=== PATIENT | male | born 1935 | race African-American/Black ===

== ENCOUNTER 2018-04-08 13:46 | Inpatient (IN) | payer MEDICARE ==
[~2018-04-08] VITALS: Ht 167.6 cm; Wt 95.0 kg
[2018-04-08] MEDS ORDERED: KETOROLAC 30MG/ML VIAL IV STA (19:18)
[2018-04-08] MEDS ORDERED: PIPERACILLIN/TAZ 3.375G PREMIX 50 ML IV ONE (19:30)
[2018-04-08] MEDS ORDERED: VANCOMYCIN 1 G PREMIX 200 ML IV ONE (19:30)
[2018-04-08 20:59] LABS: BASOPHILS % 0.3 % (0.0-2.0); EOSINOPHILS % 2.6 % (0.0-5.0); HEMATOCRIT. 38.8 % (42.0-52.0); HEMOGLOBIN. 12.6 g/dL (14.0-18.0); LYMPHOCYTES % 18.9 % (20.0-50.0); MEAN CORPUSCULAR HEMOGLOBIN 29.1 pg (28.0-32.0); MEAN CORPUSCULAR VOLUME 89.7 fL (80.0-94.0); MEAN PLATELET VOLUME 8.4 fl (7.4-10.4); MONOCYTES % 11.4 % (2.0-8.0); NEUTROPHILS % 66.8 % (40.0-76.0); PLATELET 268 x1000/uL (130-400); RED BLOOD CELL COUNT 4.33 mill/uL (4.7-6.1); RED CELL DISTRIBUTION WIDTH 15.1 % (11.6-14.6)
[2018-04-08 21:05] LABS: CHLORIDE 107 mEq/L (98-107); INR 1.1; PROTHROMBIN TIME 10.7 sec (9.1-11.1)
[2018-04-09 04:00] VITALS: BP 133/62
[2018-04-09 08:00] VITALS: BP 117/63
[2018-04-09] MEDS ORDERED: ONDANSETRON HCL 4MG/2ML INJ IV PRN (08:00)
[2018-04-09] MEDS ORDERED: IPRATROPIUM/ALBUTEROL 0.5-3(2.5)MG/3ML NEB INH PRN (08:00)
[2018-04-09] MEDS ORDERED: CLONIDINE 0.1MG TABLET PO PRN (08:00)
[2018-04-09] MEDS ORDERED: AMLO10TA80 PO (08:07)
[2018-04-09] MEDS ORDERED: ATEN50TA PO (08:08)
[2018-04-09] MEDS ORDERED: CLOP75TA16 PO (08:08)
[2018-04-09] MEDS ORDERED: ASPI-1158 PO (08:09)
[2018-04-09] MEDS ORDERED: ATOR20TA PO (08:11)
[2018-04-09] MEDS ORDERED: CA C1TAB95 PO (08:12)
[2018-04-09] MEDS ORDERED: DEXT 5%/0.45% NACL 500ML 1,000 ML IV SCH (13:15)
[2018-04-09] MEDS ORDERED: ENOXAPARIN 40MG/0.4ML SYR SUBCUT SCH (14:00)
[2018-04-09] MEDS: CLOPIDOGREL 75MG TABLET PO SCH (14:40)
[2018-04-09] MEDS: DEXT 5%/0.45% NACL 1000ML 1,000 ML IV SCH (14:56)
[2018-04-09] MEDS: PIPERACILLIN/TAZ 3.375G PREMIX 50 ML IV SCH ×2 (15:37→21:16)
[2018-04-09 16:00] VITALS: BP 102/56
[2018-04-09 20:00] VITALS: BP 102/59
[2018-04-09] MEDS ORDERED: VANCOMYCIN 1 G PREMIX 200 ML IV SCH (21:00)
[2018-04-10] VITALS: BP 115/62
[2018-04-10] MEDS: PIPERACILLIN/TAZ 3.375G PREMIX 50 ML IV SCH ×4 (02:48→20:45)
[2018-04-10 02:59] LABS: CLARITY URINE CLEAR (CLEAR); COLOR URINE YELLOW (YELLOW); KETONES URINE NEGATIVE (NEGATIVE); LEUKOCYTE ESTERASE URINE TRACE (NEGATIVE); NITRITE URINE NEGATIVE (NEGATIVE); OCCULT BLOOD URINE NEGATIVE (NEGATIVE); PH URINE 6.5 (4.5-8.0); PROTEIN URINE NEGATIVE (NEGATIVE); SPECIFIC GRAVITY URINE 1.022 (1.005-1.030); UROBILINOGEN URINE 0.2 E.U./dL (0.2-1.0)
[2018-04-10 04:00] VITALS: BP 108/56
[2018-04-10] MEDS: DEXT 5%/0.45% NACL 1000ML 1,000 ML IV SCH ×2 (04:41→16:53)
[2018-04-10] MEDS: ACETAMINOPHEN 325MG TABLET PO PRN ×2 (06:49→20:45)
[2018-04-10 07:25] LABS: BASOPHILS % 0.5 % (0.0-2.0); EOSINOPHILS % 3.4 % (0.0-5.0); HEMATOCRIT. 35.9 % (42.0-52.0); HEMOGLOBIN. 11.6 g/dL (14.0-18.0); LYMPHOCYTES % 23.3 % (20.0-50.0); MEAN CORPUSCULAR HEMOGLOBIN 28.9 pg (28.0-32.0); MEAN CORPUSCULAR VOLUME 89.1 fL (80.0-94.0); MEAN PLATELET VOLUME 8.7 fl (7.4-10.4); MONOCYTES % 12.1 % (2.0-8.0); NEUTROPHILS % 60.7 % (40.0-76.0); PLATELET 252 x1000/uL (130-400); RED BLOOD CELL COUNT 4.02 mill/uL (4.7-6.1)
[2018-04-10 07:57] LABS: CHLORIDE 106 mEq/L (98-107)
[2018-04-10 08:00] VITALS: BP 126/62
[2018-04-10] MEDS ORDERED: SODIUM CHLORIDE 0.45% 1,000 ML IV SCH (08:00)
[2018-04-10 08:05] LABS: CREATINE KINASE MB FRACTION < 1.0 ng/mL (0.5-3.6)
[2018-04-10 08:06] LABS: LDL CHOLESTEROL 93 mg/dL (5-100); PHOSPHORUS 3.5 mg/dL (2.5-4.9)
[2018-04-10 08:07] LABS: CREATINE KINASE 99 IU/L (39-308)
[2018-04-10 08:08] LABS: HDL CHOLESTEROL 44 mg/dL (40-59)
[2018-04-10] MEDS: CLOPIDOGREL 75MG TABLET PO SCH (08:46)
[2018-04-10] MEDS ORDERED: ALBUMIN HUMAN 25GM/100ML (25%) IV NR (11:00)
[2018-04-10 12:01] VITALS: BP 123/60
[2018-04-10 20:00] VITALS: BP 143/65
[2018-04-10] MEDS: ENOXAPARIN 40MG/0.4ML SYR SUBCUT SCH (20:45)
[2018-04-10] MEDS ORDERED: VANCOMYCIN 750 MG PREMIX 150 ML IV SCH (22:00)
[2018-04-11] VITALS: BP 139/73
[2018-04-11] MEDS: PIPERACILLIN/TAZ 3.375G PREMIX 50 ML IV SCH ×2 (02:03→08:31)
[2018-04-11 04:00] VITALS: BP 140/65
[2018-04-11] MEDS: DEXT 5%/0.45% NACL 1000ML 1,000 ML IV SCH (04:37)
[2018-04-11] MEDS: ACETAMINOPHEN 325MG TABLET PO PRN ×3 (06:41→23:50)
[2018-04-11 07:59] LABS: BASOPHILS % 0.4 % (0.0-2.0); EOSINOPHILS % 4.7 % (0.0-5.0); HEMATOCRIT. 32.8 % (42.0-52.0); LYMPHOCYTES % 22.6 % (20.0-50.0); MEAN CORPUSCULAR HEMOGLOBIN 29.6 pg (28.0-32.0); MEAN CORPUSCULAR VOLUME 88.3 fL (80.0-94.0); MEAN PLATELET VOLUME 8.4 fl (7.4-10.4); MONOCYTES % 14.8 % (2.0-8.0); NEUTROPHILS % 57.5 % (40.0-76.0); PLATELET 250 x1000/uL (130-400); RED BLOOD CELL COUNT 3.71 mill/uL (4.7-6.1); RED CELL DISTRIBUTION WIDTH 14.8 % (11.6-14.6)
[2018-04-11 08:00] LABS: PHOSPHORUS 3.1 mg/dL (2.5-4.9)
[2018-04-11 08:16] VITALS: BP 118/59
[2018-04-11] MEDS: ENOXAPARIN 40MG/0.4ML SYR SUBCUT SCH ×2 (08:31→20:45)
[2018-04-11] MEDS: CLOPIDOGREL 75MG TABLET PO SCH (08:31)
[2018-04-11 11:45] VITALS: BP 124/52
[2018-04-11] MEDS: VANCOMYCIN 1 G PREMIX 200 ML IV SCH (14:29)
[2018-04-11] MEDS: PIPERACILLIN/TAZ 2.25G PREMIX 50 ML IV SCH ×2 (16:16→20:45)
[2018-04-11 16:27] VITALS: BP 126/70
[2018-04-11 16:31] LABS: CLARITY URINE CLEAR (CLEAR); COLOR URINE YELLOW (YELLOW); KETONES URINE NEGATIVE (NEGATIVE); LEUKOCYTE ESTERASE URINE NEGATIVE (NEGATIVE); NITRITE URINE NEGATIVE (NEGATIVE); OCCULT BLOOD URINE NEGATIVE (NEGATIVE); PROTEIN URINE NEGATIVE (NEGATIVE); SPECIFIC GRAVITY URINE 1.008 (1.005-1.030); UROBILINOGEN URINE 0.2 E.U./dL (0.2-1.0)
[2018-04-11 20:00] VITALS: BP 138/73
[2018-04-12] VITALS: BP 130/62
[2018-04-12] MEDS: DEXT 5%/0.45% NACL 1000ML 1,000 ML IV SCH ×5 (00:58→21:42)
[2018-04-12] MEDS: PIPERACILLIN/TAZ 2.25G PREMIX 50 ML IV SCH ×4 (03:21→20:37)
[2018-04-12 04:00] VITALS: BP 126/78
[2018-04-12] MEDS: VANCOMYCIN 1 G PREMIX 200 ML IV SCH (05:14)
[2018-04-12 07:30] LABS: BASOPHILS % 0.3 % (0.0-2.0); EOSINOPHILS % 3.9 % (0.0-5.0); HEMATOCRIT. 32.1 % (42.0-52.0); HEMOGLOBIN. 10.7 g/dL (14.0-18.0); LYMPHOCYTES % 20.4 % (20.0-50.0); MEAN CORPUSCULAR HEMOGLOBIN 29.4 pg (28.0-32.0); MEAN CORPUSCULAR VOLUME 88.1 fL (80.0-94.0); MEAN PLATELET VOLUME 8.1 fl (7.4-10.4); MONOCYTES % 13.9 % (2.0-8.0); NEUTROPHILS % 61.5 % (40.0-76.0); PLATELET 268 x1000/uL (130-400); RED BLOOD CELL COUNT 3.64 mill/uL (4.7-6.1); RED CELL DISTRIBUTION WIDTH 14.9 % (11.6-14.6)
[2018-04-12 08:00] VITALS: BP 114/54
[2018-04-12] MEDS: CLOPIDOGREL 75MG TABLET PO SCH (08:57)
[2018-04-12] MEDS: ENOXAPARIN 40MG/0.4ML SYR SUBCUT SCH ×2 (08:57→20:48)
[2018-04-12] MEDS: ACETAMINOPHEN 325MG TABLET PO PRN ×2 (09:05→21:42)
[2018-04-12 12:00] VITALS: BP 101/76
[2018-04-12 16:00] VITALS: BP 122/65
[2018-04-12 20:00] VITALS: BP 138/66
[2018-04-12] MEDS: POTASSIUM CHLORIDE 10MEQ TABLET SR PO SCH (20:37)
[2018-04-13] VITALS (19 sets, daily range): BP systolic 106–142; BP diastolic 60–91
[2018-04-13] MEDS: VANCOMYCIN 1 G PREMIX 200 ML IV SCH ×2 (00:40→21:33)
[2018-04-13] MEDS: PIPERACILLIN/TAZ 2.25G PREMIX 50 ML IV SCH ×2 (02:51→09:40)
[2018-04-13] MEDS: DEXT 5%/0.45% NACL 1000ML 1,000 ML IV SCH (03:51)
[2018-04-13 06:10] LABS: A/G RATIO 0.6 (0.7-1.7); ALBUMIN 2.7 g/dL (2.9-4.4); ALPHA-1-GLOBULIN 0.3 g/dL (0.0-0.4); ALPHA-2-GLOBULIN 0.9 g/dL (0.4-1.0); BETA GLOBULIN 1.3 g/dL (0.7-1.3); GAMMA GLOBULINS 1.8 g/dL (0.4-1.8); GLOBULIN TOTAL 4.4 g/dL (2.2-3.9); M-SPIKE Not Observed g/dL (Not Observed); TOTAL PROTEIN SERUM 7.1 g/dL (6.0-8.5)
[2018-04-13 07:54] LABS: HEMATOCRIT. 28.2 % (42.0-52.0); HEMOGLOBIN. 9.2 g/dL (14.0-18.0); MEAN CORPUSCULAR HEMOGLOBIN 29.2 pg (28.0-32.0); MEAN CORPUSCULAR VOLUME 89.4 fL (80.0-94.0); MEAN PLATELET VOLUME 8.3 fl (7.4-10.4); PLATELET 234 x1000/uL (130-400); RED BLOOD CELL COUNT 3.15 mill/uL (4.7-6.1)
[2018-04-13] MEDS: ENOXAPARIN 40MG/0.4ML SYR SUBCUT SCH ×2 (09:00→22:00)
[2018-04-13 09:35] LABS: PHOSPHORUS 2.3 mg/dL (2.5-4.9)
[2018-04-13] MEDS ORDERED: POTASSIUM CHLORIDE 20MEQ TABLET SR PO NR (10:00)
[2018-04-13] MEDS: POTASSIUM CHLORIDE 10MEQ TABLET SR PO SCH (10:13)
[2018-04-13] MEDS: CLOPIDOGREL 75MG TABLET PO SCH (10:13)
[2018-04-13] MEDS ORDERED: MAGNESIUM 2 G PREMIX 50 ML IV NR (11:00)
[2018-04-13] MEDS ORDERED: LIDOCAINE HCL 1% 20ML VIAL (Pyxis) INJ ONE (12:32)
[2018-04-13] MEDS ORDERED: IOHEXOL-300 100 ML BOTTLE ONE (12:32)
[2018-04-13] MEDS ORDERED: IODIXANOL 320MG/ML 100 ML BOTTLE IV ONE (12:32)
[2018-04-13] MEDS ORDERED: ASPIRIN/SOD BICARB/CITRIC ACID 324MG TAB EFF ONE (12:32)
[2018-04-13] MEDS ORDERED: FENTANYL CITRATE/PF 50MCG/ML 2ML VIAL ONE (12:58)
[2018-04-13] MEDS ORDERED: MIDAZOLAM HCL 2 MG/2 ML VIAL ONE (12:58)
[2018-04-13] MEDS ORDERED: SODIUM CHLORIDE 0.45% 1,000 ML IV ONE (14:15)
[2018-04-13] MEDS ORDERED: ONDANSETRON HCL 4MG/2ML INJ IV PRN (14:15)
[2018-04-13] MEDS ORDERED: MORPHINE SULFATE 4 MG/ML CPJ (NOT FOR IM USE) IV PRN (14:15)
[2018-04-13] MEDS ORDERED: ATROPINE SULFATE 1MG/10ML SYR IV PRN (14:15)
[2018-04-13] MEDS ORDERED: ACETAMINOPHEN 325MG TABLET PO PRN (14:15)
[2018-04-13] MEDS ORDERED: HYDRALAZINE 20MG/ML VIAL ONE (14:19)
[2018-04-13] MEDS ORDERED: NICARDIPINE 100MCG/ML 10ML VIAL (CATH LAB) IV ONE (16:04)
[2018-04-13 16:58] LABS: TOTAL IRON BINDING CAPACITY 212 ug/dL (250-450)
[2018-04-13] MEDS: CEFTAZIDIME PENTAHYDRATE 1 G in DEXTROSE 5% WATER 50 ML IV SCH (17:20)
[2018-04-13 17:56] LABS: VITAMIN B12 SERUM 750 pg/mL (211-911)
[2018-04-13 18:10] LABS: PLATELET ESTIMATE NORMAL
[2018-04-14] VITALS (13 sets, daily range): BP systolic 100–151; BP diastolic 58–87
[2018-04-14] MEDS: CEFTAZIDIME PENTAHYDRATE 1 G in DEXTROSE 5% WATER 50 ML IV SCH ×2 (05:53→17:58)
[2018-04-14] MEDS: DEXT 5%/0.45% NACL 1000ML 1,000 ML IV SCH ×2 (05:57→19:32)
[2018-04-14] MEDS: POTASSIUM CHLORIDE 10MEQ TABLET SR PO SCH (08:17)
[2018-04-14 11:30] LABS: BASOPHILS % 0.2 % (0.0-2.0); EOSINOPHILS % 1.9 % (0.0-5.0); HEMATOCRIT. 29.1 % (42.0-52.0); HEMOGLOBIN. 9.6 g/dL (14.0-18.0); LYMPHOCYTES % 11.7 % (20.0-50.0); MEAN CORPUSCULAR HEMOGLOBIN 29.2 pg (28.0-32.0); MEAN PLATELET VOLUME 8.4 fl (7.4-10.4); MONOCYTES % 13.9 % (2.0-8.0); NEUTROPHILS % 72.3 % (40.0-76.0); PLATELET 228 x1000/uL (130-400); RED BLOOD CELL COUNT 3.28 mill/uL (4.7-6.1)
[2018-04-14] MEDS: VANCOMYCIN 1 G PREMIX 200 ML IV SCH (12:20)
[2018-04-14] MEDS ORDERED: HEPARIN SODIUM 1,000 UNIT/1ML VIAL IV ONE (16:06)
[2018-04-15] VITALS (21 sets, daily range): BP systolic 86–145; BP diastolic 54–82
[2018-04-15] MEDS: DEXT 5%/0.45% NACL 1000ML 1,000 ML IV SCH (01:26)
[2018-04-15] MEDS: CEFTAZIDIME PENTAHYDRATE 1 G in DEXTROSE 5% WATER 50 ML IV SCH ×2 (05:14→18:03)
[2018-04-15] MEDS: VANCOMYCIN 1 G PREMIX 200 ML IV SCH (06:10)
[2018-04-15 08:05] LABS: BASOPHILS % 0.5 % (0.0-2.0); EOSINOPHILS % 2.7 % (0.0-5.0); HEMATOCRIT. 32.5 % (42.0-52.0); HEMOGLOBIN. 10.6 g/dL (14.0-18.0); LYMPHOCYTES % 16.4 % (20.0-50.0); MEAN CORPUSCULAR HEMOGLOBIN 28.9 pg (28.0-32.0); MEAN PLATELET VOLUME 8.3 fl (7.4-10.4); MONOCYTES % 14.6 % (2.0-8.0); NEUTROPHILS % 65.8 % (40.0-76.0); PLATELET 265 x1000/uL (130-400); RED BLOOD CELL COUNT 3.65 mill/uL (4.7-6.1); RED CELL DISTRIBUTION WIDTH 14.9 % (11.6-14.6)
[2018-04-15] MEDS: POTASSIUM CHLORIDE 10MEQ TABLET SR PO SCH (09:00)
[2018-04-15] MEDS ORDERED: MAGNESIUM 2 G PREMIX 50 ML IV SCH (09:30)
[2018-04-15] MEDS ORDERED: HYDRALAZINE 20MG/ML VIAL IV PRN (09:30)
[2018-04-15] MEDS ORDERED: GELATIN SPONGE,ABSORBABLE 12-7MM SPONGE ONE (09:44)
[2018-04-15] MEDS ORDERED: HEPARIN 5000 UNITS/ML VIAL ONE (09:45)
[2018-04-15] MEDS ORDERED: BACITRACIN 15GM TUBE TOP ONE (09:45)
[2018-04-15] MEDS ORDERED: LIDOCAINE HCL 1% 20ML VIAL (Pyxis) INJ ONE (09:45)
[2018-04-15] MEDS ORDERED: PAPAVERINE HCL 30 MG/ML 2ML IV ONE (09:45)
[2018-04-15] MEDS ORDERED: THROMBIN (BOVINE) 5000 UNITS/VIAL TOP ONE (09:46)
[2018-04-15] MEDS ORDERED: BUPIVACAINE HCL/PF 0.5% (5MG/ML) 10ML ONE (09:46)
[2018-04-15] MEDS ORDERED: HEPARIN SODIUM 1,000 UNIT/1ML VIAL IV ONE (09:46)
[2018-04-15] MEDS ORDERED: NORMAL SALINE 0.9% 10 ML SYR ONE (09:52)
[2018-04-15] MEDS ORDERED: BACITRACIN 50,000 UNITS/VIAL ONE (09:52)
[2018-04-15] MEDS ORDERED: PROPOFOL 200MG/20ML VIAL IV ONE ×2 (11:05→12:00)
[2018-04-15] MEDS ORDERED: MIDAZOLAM HCL 2 MG/2 ML VIAL ONE (11:05)
[2018-04-15] MEDS ORDERED: FENTANYL CITRATE/PF 50MCG/ML 2ML VIAL ONE ×2 (11:05→12:55)
[2018-04-15] MEDS ORDERED: CEFAZOLIN SODIUM 1000MG/VIAL ONE (11:31)
[2018-04-15] MEDS ORDERED: ESMOLOL HCL 10MG/ML 10ML VIAL IV ONE (12:29)
[2018-04-15] MEDS ORDERED: HEPARIN 1000 UNITS/ML 10ML ONE (12:29)
[2018-04-15] MEDS ORDERED: PHENYLEPHRINE HCL 10 MG/ML 1ML (IV VIAL) IV ONE (12:46)
[2018-04-15] MEDS ORDERED: ONDANSETRON HCL 4MG/2ML INJ IV PRN (13:30)
[2018-04-15] MEDS ORDERED: FENTANYL CITRATE/PF 50MCG/ML 2ML VIAL IV PRN (13:30)
[2018-04-15] MEDS: HYDROMORPHONE HCL/PF 2MG/ML CPJ IV PRN ×2 (14:28→14:43)
[2018-04-15] MEDS ORDERED: LACTATED RINGERS 250 ML IV NR (14:30)
[2018-04-15] MEDS ORDERED: TRAMADOL 50MG TABLET PO PRN (16:45)
[2018-04-15] MEDS: DEXT 5%/0.9% NACL 1,000 ML IV SCH (22:23)
[2018-04-16] VITALS (34 sets, daily range): BP systolic 83–141; BP diastolic 52–85
[2018-04-16] MEDS: HYDROMORPHONE HCL/PF 2MG/ML CPJ IV PRN (04:32)
[2018-04-16 05:45] LABS: HEMATOCRIT. 26.7 % (42.0-52.0); HEMOGLOBIN. 8.8 g/dL (14.0-18.0); MEAN CORPUSCULAR HEMOGLOBIN 29.3 pg (28.0-32.0); MEAN CORPUSCULAR VOLUME 88.6 fL (80.0-94.0); MEAN PLATELET VOLUME 8.4 fl (7.4-10.4); PLATELET 247 x1000/uL (130-400); RED BLOOD CELL COUNT 3.01 mill/uL (4.7-6.1); RED CELL DISTRIBUTION WIDTH 14.9 % (11.6-14.6)
[2018-04-16 06:09] LABS: PHOSPHORUS 2.5 mg/dL (2.5-4.9)
[2018-04-16] MEDS: VANCOMYCIN 1 G PREMIX 200 ML IV SCH (06:12)
[2018-04-16] MEDS: CEFTAZIDIME PENTAHYDRATE 1 G in DEXTROSE 5% WATER 50 ML IV SCH ×3 (07:56→21:47)
[2018-04-16] MEDS: POTASSIUM CHLORIDE 10MEQ TABLET SR PO SCH (09:17)
[2018-04-16] MEDS ORDERED: SODIUM CHLORIDE 0.9% 250 ML IV SCH (09:45)
[2018-04-16] MEDS ORDERED: SODIUM CHLORIDE 0.9% 250 ML IV ONE (10:00)
[2018-04-16 11:33] LABS: HEMATOCRIT 26.2 % (42.0-52.0); HEMOGLOBIN 8.4 g/dL (14.0-18.0)
[2018-04-16] MEDS: ASPIRIN 81MG TABLET PO SCH (11:36)
[2018-04-16] MEDS ORDERED: PROPRANOLOL HCL 10MG TABLET PO NR (12:20)
[2018-04-16] MEDS ORDERED: HEPARIN 5000 UNITS/ML VIAL IV NR (12:30)
[2018-04-16] MEDS ORDERED: PROPRANOLOL HCL 1MG/ML AMPULE IV NR (13:00)
[2018-04-16] MEDS ORDERED: MIDAZOLAM HCL 2 MG/2 ML VIAL ONE (13:06)
[2018-04-16] MEDS ORDERED: LIDOCAINE HCL 1% 20ML VIAL (Pyxis) INJ ONE (13:07)
[2018-04-16] MEDS ORDERED: FENTANYL CITRATE/PF 50MCG/ML 2ML VIAL ONE (13:07)
[2018-04-16] MEDS ORDERED: IODIXANOL 320MG/ML 100 ML BOTTLE IV ONE (13:07)
[2018-04-16] MEDS ORDERED: ASPIRIN/SOD BICARB/CITRIC ACID 324MG TAB EFF ONE (13:09)
[2018-04-16 13:37] LABS: PLATELET ESTIMATE NORMAL
[2018-04-16] MEDS ORDERED: ATROPINE SULFATE 1MG/10ML SYR IV PRN (14:45)
[2018-04-16] MEDS ORDERED: ACETAMINOPHEN 325MG TABLET PO PRN (14:45)
[2018-04-16] MEDS ORDERED: SODIUM CHLORIDE 0.45% 500 ML IV ONE (14:45)
[2018-04-16] MEDS ORDERED: PHENYLEPHRINE 100MCG/ML 10ML VIAL (CATH LAB) IV ONE (14:51)
[2018-04-16] MEDS ORDERED: NITROGLYCERIN 50MCG/ML 10ML VIAL (CATH LAB) IV ONE (14:51)
[2018-04-16] MEDS ORDERED: HEPARIN SODIUM 1,000 UNIT/1ML VIAL IV ONE (15:21)
[2018-04-16] MEDS: NITROGLYCERIN OINT 1GM/INCH UDPKT TD SCH ×2 (17:00→22:59)
[2018-04-16] MEDS: CARVEDILOL 3.125 MG TABLET PO SCH (21:47)
[2018-04-16] MEDS: DEXT 5%/0.9% NACL 1,000 ML IV SCH (23:00)
[2018-04-17] VITALS (38 sets, daily range): BP systolic 69–131; BP diastolic 35–83
[2018-04-17] MEDS: NITROGLYCERIN OINT 1GM/INCH UDPKT TD SCH ×4 (06:37→23:51)
[2018-04-17] MEDS: VANCOMYCIN 1 G PREMIX 200 ML IV SCH (06:37)
[2018-04-17 08:05] LABS: HEMATOCRIT. 28.5 % (42.0-52.0); HEMOGLOBIN. 9.4 g/dL (14.0-18.0); MEAN CORPUSCULAR HEMOGLOBIN 29.4 pg (28.0-32.0); MEAN CORPUSCULAR VOLUME 89.4 fL (80.0-94.0); MEAN PLATELET VOLUME 8.1 fl (7.4-10.4); PLATELET 204 x1000/uL (130-400); RED BLOOD CELL COUNT 3.19 mill/uL (4.7-6.1); RED CELL DISTRIBUTION WIDTH 14.9 % (11.6-14.6)
[2018-04-17] MEDS: CEFTAZIDIME PENTAHYDRATE 1 G in DEXTROSE 5% WATER 50 ML IV SCH ×2 (09:08→20:27)
[2018-04-17] MEDS: POTASSIUM CHLORIDE 10MEQ TABLET SR PO SCH (09:09)
[2018-04-17] MEDS: CARVEDILOL 3.125 MG TABLET PO SCH ×2 (09:09→20:28)
[2018-04-17] MEDS: ASPIRIN 81MG TABLET PO SCH (09:09)
[2018-04-17 09:14] LABS: PLATELET ESTIMATE NORMAL
[2018-04-17] MEDS ORDERED: PAPAVERINE HCL 30 MG/ML 2ML IV ONE (10:14)
[2018-04-17] MEDS ORDERED: GELATIN SPONGE,ABSORBABLE 12-7MM SPONGE ONE (10:14)
[2018-04-17] MEDS ORDERED: HEPARIN 100 UNITS/1 ML VIAL ONE (10:14)
[2018-04-17] MEDS ORDERED: BACITRACIN 15GM TUBE TOP ONE (10:15)
[2018-04-17] MEDS ORDERED: THROMBIN (BOVINE) 5000 UNITS/VIAL TOP ONE (10:15)
[2018-04-17] MEDS ORDERED: LIDOCAINE HCL 1% 20ML VIAL (Pyxis) INJ ONE (10:15)
[2018-04-17] MEDS ORDERED: BACITRACIN 50,000 UNITS/VIAL ONE (10:16)
[2018-04-17] MEDS ORDERED: HEPARIN SODIUM 1,000 UNIT/1ML VIAL IV ONE (10:16)
[2018-04-17] MEDS ORDERED: BUPIVACAINE HCL 0.5% (5MG/ML) 50ML ONE (10:16)
[2018-04-17] MEDS ORDERED: MIDAZOLAM HCL 2 MG/2 ML VIAL ONE (10:43)
[2018-04-17] MEDS ORDERED: FENTANYL CITRATE/PF 50MCG/ML 2ML VIAL ONE ×2 (10:43→11:15)
[2018-04-17] MEDS ORDERED: LABETALOL HCL 5MG/ML VIAL 20ML IV ONE (10:46)
[2018-04-17] MEDS ORDERED: HYDROMORPHONE HCL/PF 2MG/ML CPJ IV PRN (11:30)
[2018-04-17] MEDS ORDERED: LABETALOL HCL 20MG/4ML CARPUJECT IV PRN (11:30)
[2018-04-17] MEDS ORDERED: MEPERIDINE HCL/PF 25MG/ML CPJ IV PRN (11:30)
[2018-04-17] MEDS ORDERED: PROPRANOLOL HCL 1MG/ML AMPULE IV NR (11:30)
[2018-04-17] MEDS ORDERED: ONDANSETRON HCL 4MG/2ML INJ IV PRN (11:30)
[2018-04-17] MEDS ORDERED: MAGNESIUM 2 G PREMIX 50 ML IV NR ×2 (12:00→16:00)
[2018-04-17] MEDS: DEXT 5%/0.9% NACL 1,000 ML IV SCH ×2 (14:07→20:29)
[2018-04-17] MEDS: PROPRANOLOL HCL 1MG/ML AMPULE IV PRN ×2 (14:12→20:27)
[2018-04-17] MEDS ORDERED: MAGNESIUM 4 G PREMIX 100 ML IV ONE (14:15)
[2018-04-17] MEDS ORDERED: POTASSIUM PHOS,M-BASIC-D-BASIC 20 MMOL in DEXT 5% WATER 243.3333 ML IV ONE (16:00)
[2018-04-17] MEDS: MORPHINE SULFATE 4 MG/ML CPJ (NOT FOR IM USE) IV PRN (17:30)
[2018-04-17] MEDS: ENOXAPARIN 40MG/0.4ML SYR SUBCUT SCH (18:29)
[2018-04-17] MEDS: ATORVASTATIN CALCIUM 20MG TABLET PO SCH (20:28)
[2018-04-18] VITALS (27 sets, daily range): BP systolic 92–181; BP diastolic 51–115
[2018-04-18] MEDS: PROPRANOLOL HCL 1MG/ML AMPULE IV PRN ×2 (03:26→18:08)
[2018-04-18] MEDS: MORPHINE SULFATE 4 MG/ML CPJ (NOT FOR IM USE) IV PRN ×2 (05:15→14:52)
[2018-04-18] MEDS: NITROGLYCERIN OINT 1GM/INCH UDPKT TD SCH ×3 (05:18→17:31)
[2018-04-18] MEDS: ENOXAPARIN 40MG/0.4ML SYR SUBCUT SCH ×2 (05:20→17:32)
[2018-04-18] MEDS: VANCOMYCIN 1 G PREMIX 200 ML IV SCH (05:22)
[2018-04-18 06:59] LABS: HEMATOCRIT. 28.3 % (42.0-52.0); HEMOGLOBIN. 9.2 g/dL (14.0-18.0); MEAN CORPUSCULAR HEMOGLOBIN 29.1 pg (28.0-32.0); MEAN CORPUSCULAR VOLUME 89.2 fL (80.0-94.0); MEAN PLATELET VOLUME 8.9 fl (7.4-10.4); PLATELET 212 x1000/uL (130-400); RED BLOOD CELL COUNT 3.17 mill/uL (4.7-6.1); RED CELL DISTRIBUTION WIDTH 14.9 % (11.6-14.6)
[2018-04-18 07:17] LABS: CHLORIDE 107 mEq/L (98-107)
[2018-04-18 07:35] LABS: CREATINE KINASE 374 IU/L (39-308)
[2018-04-18] MEDS: CARVEDILOL 3.125 MG TABLET PO SCH (09:34)
[2018-04-18] MEDS: ASPIRIN 81MG TABLET PO SCH (09:34)
[2018-04-18] MEDS: CEFTAZIDIME PENTAHYDRATE 1 G in DEXTROSE 5% WATER 50 ML IV SCH ×2 (09:34→20:37)
[2018-04-18] MEDS: POTASSIUM CHLORIDE 10MEQ TABLET SR PO SCH (09:34)
[2018-04-18 09:59] LABS: PHOSPHORUS 2.9 mg/dL (2.5-4.9)
[2018-04-18] MEDS ORDERED: CARVEDILOL 3.125 MG TABLET PO SCH (10:00)
[2018-04-18 12:06] LABS: PLATELET ESTIMATE NORMAL
[2018-04-18 17:31] LABS: CLARITY URINE TURBID (CLEAR); COLOR URINE ORANGE (YELLOW); KETONES URINE TRACE (NEGATIVE); LEUKOCYTE ESTERASE URINE 1+ (NEGATIVE); NITRITE URINE NEGATIVE (NEGATIVE); OCCULT BLOOD URINE 3+ (NEGATIVE); PROTEIN URINE 3+ (NEGATIVE); SPECIFIC GRAVITY URINE 1.025 (1.005-1.030); UROBILINOGEN URINE 0.2 E.U./dL (0.2-1.0)
[2018-04-18] MEDS: ATORVASTATIN CALCIUM 20MG TABLET PO SCH (20:39)
[2018-04-18] MEDS: CARVEDILOL 6.25 MG TABLET PO SCH (20:40)
[2018-04-18] MEDS: RANOLAZINE 500 MG TAB.SR.12H PO SCH (20:40)
[2018-04-19] VITALS (18 sets, daily range): BP systolic 101–121; BP diastolic 60–75
[2018-04-19] MEDS: NITROGLYCERIN OINT 1GM/INCH UDPKT TD SCH ×5 (00:42→22:13)
[2018-04-19] MEDS: VANCOMYCIN 1 G PREMIX 200 ML IV SCH (05:29)
[2018-04-19] MEDS: ENOXAPARIN 40MG/0.4ML SYR SUBCUT SCH ×2 (05:31→18:08)
[2018-04-19 07:20] LABS: HEMATOCRIT. 24.6 % (42.0-52.0); HEMOGLOBIN. 8.1 g/dL (14.0-18.0); MEAN CORPUSCULAR HEMOGLOBIN 29.4 pg (28.0-32.0); MEAN CORPUSCULAR VOLUME 89.1 fL (80.0-94.0); MEAN PLATELET VOLUME 8.8 fl (7.4-10.4); PLATELET 195 x1000/uL (130-400); RED BLOOD CELL COUNT 2.76 mill/uL (4.7-6.1); RED CELL DISTRIBUTION WIDTH 14.8 % (11.6-14.6)
[2018-04-19 07:56] LABS: PHOSPHORUS 2.3 mg/dL (2.5-4.9)
[2018-04-19] MEDS: CARVEDILOL 6.25 MG TABLET PO SCH (09:00)
[2018-04-19] MEDS: ASPIRIN 81MG TABLET PO SCH (09:52)
[2018-04-19] MEDS: RANOLAZINE 500 MG TAB.SR.12H PO SCH ×2 (09:52→22:12)
[2018-04-19] MEDS: CEFTAZIDIME PENTAHYDRATE 1 G in DEXTROSE 5% WATER 50 ML IV SCH ×2 (09:52→22:12)
[2018-04-19] MEDS: POTASSIUM CHLORIDE 10MEQ TABLET SR PO SCH (09:52)
[2018-04-19 12:33] LABS: NUCLEATED RED BLOOD CELLS 1 /100 WBC; PLATELET ESTIMATE NORMAL
[2018-04-19] MEDS: POTASSIUM-SODIUM PHOSPHATE POWDER PACKET PO SCH ×2 (13:36→18:10)
[2018-04-19] MEDS: CARVEDILOL 3.125 MG TABLET PO SCH ×2 (13:36→22:13)
[2018-04-19] MEDS: SODIUM CHLORIDE 0.9% 1,000 ML IV SCH (13:37)
[2018-04-19] MEDS ORDERED: MAGNESIUM 2 G PREMIX 50 ML IV ONE (14:00)
[2018-04-19 18:50] LABS: HEMATOCRIT 27.1 % (42.0-52.0)
[2018-04-19] MEDS: ATORVASTATIN CALCIUM 20MG TABLET PO SCH (22:12)
[2018-04-20] VITALS (12 sets, daily range): BP systolic 101–128; BP diastolic 55–79
[2018-04-20 05:44] LABS: BASOPHILS % 0.2 % (0.0-2.0); EOSINOPHILS % 1.9 % (0.0-5.0); HEMATOCRIT. 28.3 % (42.0-52.0); HEMOGLOBIN. 9.4 g/dL (14.0-18.0); LYMPHOCYTES % 7.8 % (20.0-50.0); MEAN CORPUSCULAR HEMOGLOBIN 29.1 pg (28.0-32.0); MEAN CORPUSCULAR VOLUME 87.4 fL (80.0-94.0); MEAN PLATELET VOLUME 8.8 fl (7.4-10.4); MONOCYTES % 12.1 % (2.0-8.0); PLATELET 212 x1000/uL (130-400); RED BLOOD CELL COUNT 3.24 mill/uL (4.7-6.1); RED CELL DISTRIBUTION WIDTH 16.5 % (11.6-14.6)
[2018-04-20 06:40] LABS: PHOSPHORUS 2.1 mg/dL (2.5-4.9)
[2018-04-20 06:43] LABS: VANCOMYCIN TROUGH 18.7 ug/mL (5.0-10.0)
[2018-04-20] MEDS: VANCOMYCIN 1 G PREMIX 200 ML IV SCH (06:58)
[2018-04-20] MEDS: NITROGLYCERIN OINT 1GM/INCH UDPKT TD SCH ×3 (06:59→17:35)
[2018-04-20] MEDS: ENOXAPARIN 40MG/0.4ML SYR SUBCUT SCH ×2 (06:59→17:35)
[2018-04-20] MEDS: CARVEDILOL 3.125 MG TABLET PO SCH (07:12)
[2018-04-20] MEDS: CEFTAZIDIME PENTAHYDRATE 1 G in DEXTROSE 5% WATER 50 ML IV SCH ×2 (08:21→21:05)
[2018-04-20] MEDS: ASPIRIN 81MG TABLET PO SCH (08:21)
[2018-04-20] MEDS: RANOLAZINE 500 MG TAB.SR.12H PO SCH ×2 (08:21→21:05)
[2018-04-20] MEDS: POTASSIUM-SODIUM PHOSPHATE POWDER PACKET PO SCH ×2 (08:21→16:00)
[2018-04-20] MEDS: SODIUM CHLORIDE 0.9% 1,000 ML IV SCH (16:00)
[2018-04-20] MEDS: ATORVASTATIN CALCIUM 20MG TABLET PO SCH (21:05)
[2018-04-20] MEDS: CARVEDILOL 6.25 MG TABLET PO SCH (21:06)
[2018-04-21] VITALS (10 sets, daily range): BP systolic 90–112; BP diastolic 50–72
[2018-04-21] MEDS: SODIUM CHLORIDE 0.9% 1,000 ML IV SCH (05:15)
[2018-04-21] MEDS: NITROGLYCERIN OINT 1GM/INCH UDPKT TD SCH ×2 (06:00)
[2018-04-21] MEDS: ENOXAPARIN 40MG/0.4ML SYR SUBCUT SCH ×2 (06:20→21:20)
[2018-04-21] MEDS: VANCOMYCIN 1 G PREMIX 200 ML IV SCH (06:20)
[2018-04-21] MEDS: CARVEDILOL 6.25 MG TABLET PO SCH (09:00)
[2018-04-21 09:33] LABS: BASOPHILS % 0.5 % (0.0-2.0); EOSINOPHILS % 2.1 % (0.0-5.0); HEMOGLOBIN. 8.8 g/dL (14.0-18.0); LYMPHOCYTES % 6.4 % (20.0-50.0); MEAN CORPUSCULAR HEMOGLOBIN 28.9 pg (28.0-32.0); MEAN CORPUSCULAR VOLUME 88.6 fL (80.0-94.0); MONOCYTES % 12.6 % (2.0-8.0); NEUTROPHILS % 78.4 % (40.0-76.0); PLATELET 216 x1000/uL (130-400); RED BLOOD CELL COUNT 3.05 mill/uL (4.7-6.1); RED CELL DISTRIBUTION WIDTH 16.4 % (11.6-14.6)
[2018-04-21] MEDS: ASPIRIN 81MG TABLET PO SCH (09:40)
[2018-04-21] MEDS: CEFTAZIDIME PENTAHYDRATE 1 G in DEXTROSE 5% WATER 50 ML IV SCH ×2 (09:40→21:19)
[2018-04-21] MEDS: RANOLAZINE 500 MG TAB.SR.12H PO SCH ×2 (09:41→21:20)
[2018-04-21 09:59] LABS: CHLORIDE 107 mEq/L (98-107)
[2018-04-21 11:16] LABS: PHOSPHORUS 2.2 mg/dL (2.5-4.9)
[2018-04-21] MEDS ORDERED: MAGNESIUM 2 G PREMIX 50 ML IV NR (13:00)
[2018-04-21] MEDS ORDERED: SODIUM PHOS,M-BASIC-D-BASIC 20 MM in DEXT 5% WATER 243.3333 ML IV NR (14:00)
[2018-04-21] MEDS: CARVEDILOL 3.125 MG TABLET PO SCH ×2 (14:00→21:21)
[2018-04-21] MEDS ORDERED: ISOSORBIDE MONONITRATE 30MG TABLET SR 24HR PO SCH (21:00)
[2018-04-21] MEDS: ATORVASTATIN CALCIUM 20MG TABLET PO SCH (21:20)
[2018-04-22] VITALS (13 sets, daily range): BP systolic 95–120; BP diastolic 64–82
[2018-04-22] MEDS: SODIUM CHLORIDE 0.9% 1,000 ML IV SCH (01:15)
[2018-04-22] MEDS: ENOXAPARIN 40MG/0.4ML SYR SUBCUT SCH ×2 (06:16→17:33)
[2018-04-22] MEDS: VANCOMYCIN 1 G PREMIX 200 ML IV SCH (06:16)
[2018-04-22] MEDS: CARVEDILOL 3.125 MG TABLET PO SCH ×3 (06:18→20:18)
[2018-04-22 08:05] LABS: BASOPHILS % 0.5 % (0.0-2.0); EOSINOPHILS % 3.5 % (0.0-5.0); HEMATOCRIT. 26.5 % (42.0-52.0); HEMOGLOBIN. 8.7 g/dL (14.0-18.0); LYMPHOCYTES % 7.2 % (20.0-50.0); MEAN CORPUSCULAR HEMOGLOBIN 28.9 pg (28.0-32.0); MEAN CORPUSCULAR VOLUME 88.2 fL (80.0-94.0); MEAN PLATELET VOLUME 8.8 fl (7.4-10.4); MONOCYTES % 13.2 % (2.0-8.0); NEUTROPHILS % 75.6 % (40.0-76.0); PLATELET 245 x1000/uL (130-400); RED CELL DISTRIBUTION WIDTH 16.2 % (11.6-14.6)
[2018-04-22] MEDS: CEFTAZIDIME PENTAHYDRATE 1 G in DEXTROSE 5% WATER 50 ML IV SCH ×2 (08:40→20:18)
[2018-04-22] MEDS: RANOLAZINE 500 MG TAB.SR.12H PO SCH ×2 (08:40→20:18)
[2018-04-22] MEDS: ASPIRIN 81MG TABLET PO SCH (08:40)
[2018-04-22] MEDS ORDERED: GUAIFENESIN-DM 200MG-20MG/10ML UDC PO PRN (09:45)
[2018-04-22] MEDS: ATORVASTATIN CALCIUM 20MG TABLET PO SCH (20:17)
== END 2018-04-22 21:32 | disposition home or self-care (01) | DRG 853 ==
LOC: ER 14:33 → 5WST 22:49 → EDBEDREQTM 23:28 → EDBEDREQ 23:28 → EDBEDREQSVC 23:28 → ENRESERV 04-09 04:43 → 3WST 04-13 15:12 → CVICU 04-16 14:25 → 3WST 04-18 16:36
PROVIDERS: ADMIT Internal Medicine Critical Care Medicine; ATTEND Internal Medicine Critical Care Medicine
PROC: B41F1ZZ Fluoroscopy of Right Lower Extremity Arteries using Low Osmolar Contrast (ICD-10-PCS; principal; 2018-04-11)
PROC: 04HK33Z Insertion of Infusion Device into Right Femoral Artery, Percutaneous Approach (ICD-10-PCS; 2018-04-11)
PROC: 0JBQ0ZZ Excision of Right Foot Subcutaneous Tissue and Fascia, Open Approach (ICD-10-PCS; 2018-04-11)
PROC: B41G1ZZ Fluoroscopy of Left Lower Extremity Arteries using Low Osmolar Contrast (ICD-10-PCS; 2018-04-13)
PROC: B41F1ZZ Fluoroscopy of Right Lower Extremity Arteries using Low Osmolar Contrast (ICD-10-PCS; 2018-04-13)
PROC: 041M0KQ Bypass Right Popliteal Artery to Lower Extremity Artery with Nonautologous Tissue Substitute, Open Approach (ICD-10-PCS; 2018-04-15)
PROC: 0JBQ0ZZ Excision of Right Foot Subcutaneous Tissue and Fascia, Open Approach (ICD-10-PCS; 2018-04-16)
PROC: 4A023N7 Measurement of Cardiac Sampling and Pressure, Left Heart, Percutaneous Approach (ICD-10-PCS; 2018-04-16)
PROC: B2111ZZ Fluoroscopy of Multiple Coronary Arteries using Low Osmolar Contrast (ICD-10-PCS; 2018-04-16)
PROC: 30233N1 Transfusion of Nonautologous Red Blood Cells into Peripheral Vein, Percutaneous Approach (ICD-10-PCS; 2018-04-16)
PROC: B2151ZZ Fluoroscopy of Left Heart using Low Osmolar Contrast (ICD-10-PCS; 2018-04-16)
PROC: 04CM0ZZ Extirpation of Matter from Right Popliteal Artery, Open Approach (ICD-10-PCS; 2018-04-17)
PROC: 04CK0ZZ Extirpation of Matter from Right Femoral Artery, Open Approach (ICD-10-PCS; 2018-04-17)
DX: A41.02 Sepsis due to Methicillin resistant Staphylococcus aureus (principal); E43 Unspecified severe protein-calorie malnutrition; I21.4 Non-ST elevation (NSTEMI) myocardial infarction; I63.9 Cerebral infarction, unspecified; N17.9 Acute kidney failure, unspecified; L97.409 Non-pressure chronic ulcer of unspecified heel and midfoot with unspecified severity; I69.351 Hemiplegia and hemiparesis following cerebral infarction affecting right dominant side; E87.2 Acidosis; E11.52 Type 2 diabetes mellitus with diabetic peripheral angiopathy with gangrene; T82.868A Thrombosis due to vascular prosthetic devices, implants and grafts, initial encounter; D64.9 Anemia, unspecified; E78.00 Pure hypercholesterolemia, unspecified; E78.5 Hyperlipidemia, unspecified; L03.031 Cellulitis of right toe; N18.3 Chronic kidney disease, stage 3 (moderate); I73.9 Peripheral vascular disease, unspecified; I12.9 Hypertensive chronic kidney disease with stage 1 through stage 4 chronic kidney disease, or unspecified chronic kidney disease; L97.519 Non-pressure chronic ulcer of other part of right foot with unspecified severity; A41.52 Sepsis due to Pseudomonas; F32.9 Major depressive disorder, single episode, unspecified; G62.9 Polyneuropathy, unspecified; I25.10 Atherosclerotic heart disease of native coronary artery without angina pectoris; I25.5 Ischemic cardiomyopathy; M19.90 Unspecified osteoarthritis, unspecified site; Z95.828 Presence of other vascular implants and grafts; Z95.5 Presence of coronary angioplasty implant and graft; Z86.74 Personal history of sudden cardiac arrest; Z82.49 Family history of ischemic heart disease and other diseases of the circulatory system; Z79.899 Other long term (current) drug therapy; Z79.82 Long term (current) use of aspirin; Z79.02 Long term (current) use of antithrombotics/antiplatelets; Z22.322 Carrier or suspected carrier of Methicillin resistant Staphylococcus aureus; Z87.891 Personal history of nicotine dependence; Z79.4 Long term (current) use of insulin; Y83.2 Surgical operation with anastomosis, bypass or graft as the cause of abnormal reaction of the patient, or of later complication, without mention of misadventure at the time of the procedure; M21.619 Bunion of unspecified foot
CPT/HCPCS: 36246; 36415; 36569; 71045; 73630; 73721; 74176; 75710; 76770; 76937; 77001; 80048; 80061; 80202; 82550; 82553; 82607; 82962; 83540; 83550; 83605; 83735; 83880; 84100; 84134; 84145; 84155; 84165; 84443; 84484; 85014; 85018; 85044; 85347; 85379; 85651; 86140; 86850; 86900; 86920; 87070; 87077; 87186; 88304; 93005; 93306; 93458; 93922; 93923; 93970; 93971; 96365; 97163; 97166; 97530; 99285; C1725; C1757; C1760; C1768; C1769; C1887; C1893; C1894; J0360; J0690; J0713; J1170; J1642; J1644; J1650; J1800; J1885; J2250; J2270; J2370; J2440; J2543; J2704; J3010; J3370; J3475; J3490; J7030; J7040; J7042; J7050; J7060; J7620; P9016; P9047; Q9967

== ENCOUNTER 2018-06-26 12:41 | Inpatient (IN) | payer MEDICARE ==
[~2018-06-26] VITALS: Ht 167.6 cm; Wt 8.2 kg
[~2018-06-26 12:41] MED LIST: AMLO10TA80 PO; ASPI-1158 PO; ATEN50TA PO; ATOR20TA PO; CA C1TAB95 PO; CLOP75TA16 PO
[2018-06-26 13:22] LABS: BASOPHILS % 0.4 % (0.0-2.0); EOSINOPHILS % 3.4 % (0.0-5.0); HEMATOCRIT. 31.7 % (42.0-52.0); HEMOGLOBIN. 10.4 g/dL (14.0-18.0); LYMPHOCYTES % 20.5 % (20.0-50.0); MEAN CORPUSCULAR HEMOGLOBIN 28.3 pg (28.0-32.0); MEAN PLATELET VOLUME 7.4 fl (7.4-10.4); MONOCYTES % 11.6 % (2.0-8.0); NEUTROPHILS % 64.1 % (40.0-76.0); PLATELET 402 x1000/uL (130-400); RED BLOOD CELL COUNT 3.68 mill/uL (4.7-6.1); RED CELL DISTRIBUTION WIDTH 15.8 % (11.6-14.6)
[2018-06-26 13:28] LABS: CHLORIDE 101 mEq/L (98-107)
[2018-06-26 13:30] LABS: INR 1.1; PROTHROMBIN TIME 11.4 sec (9.6-11.0)
[2018-06-26 13:32] LABS: ETHANOL BLOOD < 10 mg/dL
[2018-06-26] MEDS ORDERED: ASPIRIN 325MG EC TABLET PO ONE (15:00)
[2018-06-26] MEDS ORDERED: ZOLPIDEM TARTRATE 5MG TABLET PO PRN (15:45)
[2018-06-26] MEDS ORDERED: CLONIDINE 0.1MG TABLET PO PRN (15:45)
[2018-06-26] MEDS ORDERED: MAGNESIUM/ALUMINUM HYDROXIDE/SIMETHICONE 30ML UDC PO PRN (15:45)
[2018-06-26] MEDS ORDERED: ONDANSETRON HCL 4MG/2ML INJ IV PRN (15:45)
[2018-06-26] MEDS ORDERED: IPRATROPIUM/ALBUTEROL 0.5-3(2.5)MG/3ML NEB INH PRN (15:45)
[2018-06-26] MEDS ORDERED: ACETAMINOPHEN 325MG TABLET PO PRN (15:45)
[2018-06-26] MEDS ORDERED: NITROGLYCERIN 0.4MG TABLET SL SL PRN (15:45)
[2018-06-26] MEDS ORDERED: GUAIFENESIN 200MG/10ML SUGAR FREE UDC PO PRN (15:45)
[2018-06-26] MEDS ORDERED: DOCUSATE SODIUM 100MG CAPSULE PO PRN (15:45)
[2018-06-26] MEDS ORDERED: ENOXAPARIN 40MG/0.4ML SYR SUBCUT NR (16:15)
[2018-06-26 16:16] LABS: T4 FREE 1.45 ng/dL (0.76-1.46)
[2018-06-26 16:33] LABS: FOLIC ACID (FOLATE) SERUM 6.3 ng/mL (>5.38)
[2018-06-26 20:30] VITALS: BP 149/76
[2018-06-26] MEDS ORDERED: TRAMADOL 50MG TABLET PO PRN (20:32)
[2018-06-26] MEDS: FAMOTIDINE 20MG TABLET PO SCH (21:59)
[2018-06-26] MEDS: ATORVASTATIN CALCIUM 20MG TABLET PO SCH (21:59)
[2018-06-26] MEDS: ASCORBIC ACID 500 MG TABLET PO SCH (21:59)
[2018-06-26 22:24] VITALS: BP 149/76
[2018-06-27 00:05] VITALS: BP 140/70
[2018-06-27 01:41] LABS: CREATINE KINASE 203 IU/L (39-308); CREATINE KINASE MB FRACTION < 1.0 ng/mL (0.5-3.6)
[2018-06-27 04:00] VITALS: BP 124/69
[2018-06-27 06:09] LABS: CLARITY URINE CLEAR (CLEAR); COLOR URINE YELLOW (YELLOW); KETONES URINE 1+ (NEGATIVE); LEUKOCYTE ESTERASE URINE NEGATIVE (NEGATIVE); NITRITE URINE NEGATIVE (NEGATIVE); OCCULT BLOOD URINE TRACE (NEGATIVE); PROTEIN URINE NEGATIVE (NEGATIVE); SPECIFIC GRAVITY URINE 1.017 (1.005-1.030); UROBILINOGEN URINE 0.2 E.U./dL (0.2-1.0)
[2018-06-27 06:48] LABS: *AMPHETAMINES SCREEN URINE NEGATIVE (NEGATIVE)
[2018-06-27 06:49] LABS: *BARBITURATES SCREEN URINE NEGATIVE (NEGATIVE); *BENZODIAZEPINES SCREEN URINE NEGATIVE (NEGATIVE); *COCAINE SCREEN URINE NEGATIVE (NEGATIVE); CANNABINOID URINE SCREEN NEGATIVE (NEGATIVE); METHADONE URINE SCREEN NEGATIVE (NEGATIVE); OPIATES URINE SCREEN NEGATIVE (NEGATIVE); PHENCYCLIDINE URINE SCREEN NEGATIVE (NEGATIVE)
[2018-06-27 08:00] VITALS: BP 158/80
[2018-06-27] MEDS: ASPIRIN 81MG EC TABLET PO SCH (09:36)
[2018-06-27] MEDS: ASCORBIC ACID 500 MG TABLET PO SCH ×2 (09:36→20:34)
[2018-06-27] MEDS: CLOPIDOGREL 75MG TABLET PO SCH (09:36)
[2018-06-27] MEDS: ENOXAPARIN 40MG/0.4ML SYR SUBCUT SCH (09:36)
[2018-06-27] MEDS: ZINC SULFATE 220 MG ( 50 ) CAPSULE PO SCH (09:36)
[2018-06-27 12:00] VITALS: BP 138/89
[2018-06-27] MEDS ORDERED: COLC0.6C3 MT (12:18)
[2018-06-27] MEDS ORDERED: MEMA5TAB7 MT (12:18)
[2018-06-27] MEDS ORDERED: GABA-531 MT (12:18)
[2018-06-27] MEDS ORDERED: TRAM50TA3 MT (12:18)
[2018-06-27 12:38] LABS: BASOPHILS % 0.5 % (0.0-2.0); HEMATOCRIT. 32.4 % (42.0-52.0); HEMOGLOBIN. 10.6 g/dL (14.0-18.0); MEAN CORPUSCULAR HEMOGLOBIN 27.9 pg (28.0-32.0); MEAN CORPUSCULAR VOLUME 85.4 fL (80.0-94.0); MEAN PLATELET VOLUME 7.6 fl (7.4-10.4); MONOCYTES % 11.9 % (2.0-8.0); NEUTROPHILS % 74.6 % (40.0-76.0); PLATELET 386 x1000/uL (130-400); RED BLOOD CELL COUNT 3.79 mill/uL (4.7-6.1); RED CELL DISTRIBUTION WIDTH 15.9 % (11.6-14.6)
[2018-06-27 12:47] LABS: CHLORIDE 101 mEq/L (98-107)
[2018-06-27 12:55] LABS: CREATINE KINASE 150 IU/L (39-308)
[2018-06-27 13:22] LABS: CREATINE KINASE MB FRACTION 1.9 ng/mL (0.5-3.6)
[2018-06-27 16:00] VITALS: BP 129/59
[2018-06-27 20:00] VITALS: BP 120/62
[2018-06-27] MEDS: ATORVASTATIN CALCIUM 20MG TABLET PO SCH (20:34)
[2018-06-27] MEDS: FAMOTIDINE 20MG TABLET PO SCH (20:34)
[2018-06-28 00:05] VITALS: BP 122/69
[2018-06-28 04:05] VITALS: BP 120/61
[2018-06-28 08:00] VITALS: BP 128/61
[2018-06-28] MEDS: ASCORBIC ACID 500 MG TABLET PO SCH ×2 (09:53→20:49)
[2018-06-28] MEDS: ZINC SULFATE 220 MG ( 50 ) CAPSULE PO SCH (09:53)
[2018-06-28] MEDS: CLOPIDOGREL 75MG TABLET PO SCH (09:53)
[2018-06-28] MEDS: ASPIRIN 81MG EC TABLET PO SCH (09:53)
[2018-06-28] MEDS: ENOXAPARIN 40MG/0.4ML SYR SUBCUT SCH (09:53)
[2018-06-28 12:00] VITALS: BP 117/63
[2018-06-28 16:00] VITALS: BP 122/63
[2018-06-28 20:00] VITALS: BP 118/63
[2018-06-28] MEDS: FAMOTIDINE 20MG TABLET PO SCH (20:49)
[2018-06-28] MEDS: ATORVASTATIN CALCIUM 20MG TABLET PO SCH (20:49)
[2018-06-29 00:05] VITALS: BP 112/69
[2018-06-29 04:00] VITALS: BP 122/71
[2018-06-29 08:00] VITALS: BP 114/64
[2018-06-29] MEDS: ZINC SULFATE 220 MG ( 50 ) CAPSULE PO SCH (09:03)
[2018-06-29] MEDS: ASCORBIC ACID 500 MG TABLET PO SCH ×2 (09:03→21:22)
[2018-06-29] MEDS: ASPIRIN 81MG EC TABLET PO SCH (09:03)
[2018-06-29] MEDS: CLOPIDOGREL 75MG TABLET PO SCH (09:03)
[2018-06-29] MEDS: ENOXAPARIN 40MG/0.4ML SYR SUBCUT SCH (09:04)
[2018-06-29 12:00] VITALS: BP 113/65
[2018-06-29 13:11] LABS: A/G RATIO 0.5 (0.7-1.7); ALBUMIN 2.9 g/dL (2.9-4.4); ALPHA-1-GLOBULIN 0.4 g/dL (0.0-0.4); ALPHA-2-GLOBULIN 1.2 g/dL (0.4-1.0); BETA GLOBULIN 1.5 g/dL (0.7-1.3); GLOBULIN TOTAL 6.2 g/dL (2.2-3.9); M-SPIKE Not Observed g/dL (Not Observed); TOTAL PROTEIN SERUM 9.1 g/dL (6.0-8.5)
[2018-06-29 16:00] VITALS: BP 136/66
[2018-06-29 20:00] VITALS: BP 104/66
[2018-06-29] MEDS: FAMOTIDINE 20MG TABLET PO SCH (21:22)
[2018-06-29] MEDS: ATORVASTATIN CALCIUM 20MG TABLET PO SCH (21:22)
[2018-06-30] VITALS: BP 103/69
[2018-06-30 04:00] VITALS: BP 108/58
[2018-06-30 08:00] VITALS: BP_SYST 105; BP_SYST 133; BP_DIAS 63; BP_DIAS 64
[2018-06-30] MEDS: ENOXAPARIN 40MG/0.4ML SYR SUBCUT SCH (08:45)
[2018-06-30] MEDS: CLOPIDOGREL 75MG TABLET PO SCH (08:45)
[2018-06-30] MEDS: ZINC SULFATE 220 MG ( 50 ) CAPSULE PO SCH (08:46)
[2018-06-30] MEDS: ASPIRIN 81MG EC TABLET PO SCH (08:46)
[2018-06-30] MEDS: ASCORBIC ACID 500 MG TABLET PO SCH ×2 (08:46→20:37)
[2018-06-30 12:00] VITALS: BP 124/78
[2018-06-30 16:00] VITALS: BP 118/79
[2018-06-30 20:00] VITALS: BP 102/61
[2018-06-30] MEDS: ATORVASTATIN CALCIUM 20MG TABLET PO SCH (20:37)
[2018-06-30] MEDS: FAMOTIDINE 20MG TABLET PO SCH (20:37)
[2018-07-01] VITALS: BP 127/70
[2018-07-01 04:00] VITALS: BP 133/74
[2018-07-01 08:00] VITALS: BP 106/61
[2018-07-01] MEDS: CLOPIDOGREL 75MG TABLET PO SCH (08:09)
[2018-07-01] MEDS: ASPIRIN 81MG EC TABLET PO SCH (08:09)
[2018-07-01] MEDS: ASCORBIC ACID 500 MG TABLET PO SCH (08:09)
[2018-07-01] MEDS: ZINC SULFATE 220 MG ( 50 ) CAPSULE PO SCH (08:09)
[2018-07-01] MEDS: ENOXAPARIN 40MG/0.4ML SYR SUBCUT SCH (08:10)
[2018-07-01 11:21] VITALS: BP 106/84
== END 2018-07-01 12:25 | disposition home health service (06) | DRG 91 ==
LOC: ER 13:10 → EDBEDREQSVC 14:55 → EDBEDREQ 14:55 → SUPCPDRO 15:27 → 7WST 15:40 → EDBEDREQ 15:42 → ENRESERV 19:44
PROVIDERS: ADMIT Internal Medicine; ATTEND Internal Medicine
DX: G95.20 Unspecified cord compression (principal); S14.103A Unspecified injury at C3 level of cervical spinal cord, initial encounter; L89.313 Pressure ulcer of right buttock, stage 3; G92 Toxic encephalopathy; N17.0 Acute kidney failure with tubular necrosis; M47.12 Other spondylosis with myelopathy, cervical region; T82.858A Stenosis of other vascular prosthetic devices, implants and grafts, initial encounter; E44.0 Moderate protein-calorie malnutrition; I13.0 Hypertensive heart and chronic kidney disease with heart failure and stage 1 through stage 4 chronic kidney disease, or unspecified chronic kidney disease; I42.9 Cardiomyopathy, unspecified; I50.42 Chronic combined systolic (congestive) and diastolic (congestive) heart failure; I69.351 Hemiplegia and hemiparesis following cerebral infarction affecting right dominant side; J84.9 Interstitial pulmonary disease, unspecified; Z79.02 Long term (current) use of antithrombotics/antiplatelets; G95.89 Other specified diseases of spinal cord; D63.8 Anemia in other chronic diseases classified elsewhere; D72.829 Elevated white blood cell count, unspecified; N18.9 Chronic kidney disease, unspecified; L89.150 Pressure ulcer of sacral region, unstageable; B95.62 Methicillin resistant Staphylococcus aureus infection as the cause of diseases classified elsewhere; E61.1 Iron deficiency; L98.429 Non-pressure chronic ulcer of back with unspecified severity; E78.5 Hyperlipidemia, unspecified; G62.9 Polyneuropathy, unspecified; I25.10 Atherosclerotic heart disease of native coronary artery without angina pectoris; I73.9 Peripheral vascular disease, unspecified; M46.90 Unspecified inflammatory spondylopathy, site unspecified; M48.061 Spinal stenosis, lumbar region without neurogenic claudication; M47.816 Spondylosis without myelopathy or radiculopathy, lumbar region; M48.02 Spinal stenosis, cervical region; R13.10 Dysphagia, unspecified; R47.1 Dysarthria and anarthria; M25.569 Pain in unspecified knee; X58.XXXA Exposure to other specified factors, initial encounter; Y83.2 Surgical operation with anastomosis, bypass or graft as the cause of abnormal reaction of the patient, or of later complication, without mention of misadventure at the time of the procedure; Y93.89 Activity, other specified; Y99.8 Other external cause status; Z95.828 Presence of other vascular implants and grafts; I69.320 Aphasia following cerebral infarction; Z98.1 Arthrodesis status; Z95.5 Presence of coronary angioplasty implant and graft; Z87.891 Personal history of nicotine dependence; Z68.30 Body mass index [BMI] 30.0-30.9, adult; Y92.89 Other specified places as the place of occurrence of the external cause
CPT/HCPCS: 36415; 70551; 71045; 72141; 72146; 72148; 73721; 80061; 80305; 80320; 82550; 82553; 82607; 82746; 82962; 83036; 83540; 83550; 83605; 83721; 83880; 84155; 84165; 84439; 84443; 84484; 92523; 92610; 93005; 93923; 93970; 97163; 97166; 99285; A6261; J1650; G0480

== ENCOUNTER 2018-09-03 14:49 | Inpatient (IN) | payer MEDICARE ==
[~2018-09-03] VITALS: Ht 172.7 cm; Wt 78.0 kg
[~2018-09-03 14:49] MED LIST changes: -CLOP75TA16 PO; +CLOP75TA4 PO; +COLC0.6C3 MT; +GABA-531 MT; +MEMA5TAB7 MT; +TRAM50TA3 MT
[2018-09-03 16:55] VITALS: BP 94/49
[2018-09-03] MEDS ORDERED: MAGNESIUM/ALUMINUM HYDROXIDE/SIMETHICONE 30ML UDC PO PRN (18:15)
[2018-09-03] MEDS ORDERED: CLONIDINE 0.1MG TABLET PO PRN (18:15)
[2018-09-03] MEDS ORDERED: MORPHINE SULFATE 2 MG/ML CPJ (NOT FOR IM USE) IV PRN (18:15)
[2018-09-03 20:00] VITALS: BP 96/46
[2018-09-03] MEDS: HYDROCODONE/ACETAMINOPHEN 5/325MG TABLET PO PRN (20:51)
[2018-09-03 22:00] VITALS: BP 94/46
[2018-09-04] VITALS (7 sets, daily range): BP systolic 83–110; BP diastolic 42–68
[2018-09-04 06:23] LABS: HEMATOCRIT. 30.1 % (42.0-52.0); HEMOGLOBIN. 9.7 g/dL (14.0-18.0); MEAN CORPUSCULAR HEMOGLOBIN 27.9 pg (28.0-32.0); MEAN CORPUSCULAR VOLUME 86.8 fL (80.0-94.0); MEAN PLATELET VOLUME 8.3 fl (7.4-10.4); PLATELET 317 x1000/uL (130-400); RED BLOOD CELL COUNT 3.47 mill/uL (4.7-6.1); RED CELL DISTRIBUTION WIDTH 16.4 % (11.6-14.6)
[2018-09-04] MEDS: SODIUM CHLORIDE 0.45% 1,000 ML IV SCH (09:45)
[2018-09-04 10:12] LABS: INR 1.2; PARTIAL THROMBOPLASTIN TIME 27.9 sec (23.4-31.0); PROTHROMBIN TIME 11.9 sec (9.6-11.0)
[2018-09-04 10:38] LABS: PLATELET ESTIMATE NORMAL
[2018-09-04] MEDS ORDERED: IPRATROPIUM/ALBUTEROL 0.5-3(2.5)MG/3ML NEB HHN PRN (11:00)
[2018-09-04] MEDS ORDERED: PIPERACILLIN/TAZ 2.25G PREMIX 50 ML IV SCH (12:00)
[2018-09-04] MEDS ORDERED: IODIXANOL 320MG/ML 100 ML BOTTLE IV ONE (12:28)
[2018-09-04] MEDS ORDERED: LIDOCAINE HCL 1% 20ML VIAL (Pyxis) INJ ONE (12:28)
[2018-09-04] MEDS ORDERED: FENTANYL CITRATE/PF 50MCG/ML 2ML VIAL ONE (12:29)
[2018-09-04] MEDS ORDERED: MIDAZOLAM HCL 2 MG/2 ML VIAL ONE (12:29)
[2018-09-04] MEDS ORDERED: VANCOMYCIN 1500MG in DEXTROSE 5% WATER 250ML IV SCH (13:00)
[2018-09-04] MEDS ORDERED: IOHEXOL-300 100 ML BOTTLE ONE (13:07)
[2018-09-04] MEDS ORDERED: HEPARIN SODIUM 1,000 UNIT/1ML VIAL IV ONE (13:39)
[2018-09-04] MEDS: PIPERACILLIN/TAZ 2.25G PREMIX 50 ML IV SCH ×2 (16:44→20:42)
[2018-09-04] MEDS: CLOPIDOGREL 75MG TABLET PO SCH (16:45)
[2018-09-04] MEDS: ASPIRIN 81MG EC TABLET PO SCH (16:45)
[2018-09-04] MEDS: ENOXAPARIN 30MG/0.3ML SYR SUBCUT SCH (20:43)
[2018-09-04] MEDS: ATORVASTATIN CALCIUM 10MG TABLET PO SCH (20:43)
[2018-09-05] VITALS (12 sets, daily range): BP systolic 88–112; BP diastolic 50–70
[2018-09-05] MEDS: PIPERACILLIN/TAZ 2.25G PREMIX 50 ML IV SCH ×4 (03:35→20:56)
[2018-09-05] MEDS: SODIUM CHLORIDE 0.45% 1,000 ML IV SCH ×2 (05:45→20:37)
[2018-09-05 06:54] LABS: BASOPHILS % 0.3 % (0.0-2.0); EOSINOPHILS % 0.6 % (0.0-5.0); HEMATOCRIT. 28.3 % (42.0-52.0); HEMOGLOBIN. 9.1 g/dL (14.0-18.0); LYMPHOCYTES % 7.1 % (20.0-50.0); MEAN CORPUSCULAR HEMOGLOBIN 28.3 pg (28.0-32.0); MEAN CORPUSCULAR VOLUME 87.5 fL (80.0-94.0); MONOCYTES % 7.1 % (2.0-8.0); NEUTROPHILS % 84.9 % (40.0-76.0); RED BLOOD CELL COUNT 3.23 mill/uL (4.7-6.1); RED CELL DISTRIBUTION WIDTH 16.4 % (11.6-14.6)
[2018-09-05 07:37] LABS: CHLORIDE 108 mEq/L (98-107)
[2018-09-05 07:47] LABS: PHOSPHORUS 3.5 mg/dL (2.5-4.9)
[2018-09-05 07:49] LABS: HDL CHOLESTEROL 27 mg/dL (40-59)
[2018-09-05 07:50] LABS: LDL CHOLESTEROL 35 mg/dL (5-100)
[2018-09-05 08:06] LABS: CLARITY URINE CLOUDY (CLEAR); COLOR URINE YELLOW (YELLOW); KETONES URINE TRACE (NEGATIVE); LEUKOCYTE ESTERASE URINE TRACE (NEGATIVE); NITRITE URINE NEGATIVE (NEGATIVE); OCCULT BLOOD URINE 2+ (NEGATIVE); PROTEIN URINE 1+ (NEGATIVE); SPECIFIC GRAVITY URINE 1.036 (1.005-1.030); UROBILINOGEN URINE 0.2 E.U./dL (0.2-1.0)
[2018-09-05] MEDS: ASPIRIN 81MG EC TABLET PO SCH (09:56)
[2018-09-05] MEDS: CLOPIDOGREL 75MG TABLET PO SCH (09:57)
[2018-09-05 09:58] LABS: PLATELET 260 x1000/uL (130-400)
[2018-09-05 09:59] LABS: MEAN PLATELET VOLUME 8.4 fl (7.4-10.4); PLATELET ESTIMATE NORMAL
[2018-09-05] MEDS ORDERED: VANCOMYCIN 750 MG PREMIX 150 ML IV SCH (12:00)
[2018-09-05] MEDS: ENOXAPARIN 30MG/0.3ML SYR SUBCUT SCH (16:03)
[2018-09-05] MEDS: ATORVASTATIN CALCIUM 10MG TABLET PO SCH (20:36)
[2018-09-06] VITALS (11 sets, daily range): BP systolic 80–128; BP diastolic 46–106
[2018-09-06] MEDS: PIPERACILLIN/TAZ 2.25G PREMIX 50 ML IV SCH ×4 (03:11→20:50)
[2018-09-06] MEDS: ASPIRIN 81MG EC TABLET PO SCH (08:56)
[2018-09-06] MEDS: CLOPIDOGREL 75MG TABLET PO SCH (08:56)
[2018-09-06 12:24] LABS: HEMATOCRIT. 23.4 % (42.0-52.0); HEMOGLOBIN. 7.7 g/dL (14.0-18.0); MEAN CORPUSCULAR HEMOGLOBIN 28.1 pg (28.0-32.0); MEAN CORPUSCULAR VOLUME 85.7 fL (80.0-94.0); PLATELET 274 x1000/uL (130-400); RED BLOOD CELL COUNT 2.73 mill/uL (4.7-6.1); RED CELL DISTRIBUTION WIDTH 15.9 % (11.6-14.6)
[2018-09-06] MEDS: VANCOMYCIN 1 G PREMIX 200 ML IV SCH (13:00)
[2018-09-06 13:44] LABS: PLATELET ESTIMATE NORMAL
[2018-09-06] MEDS ORDERED: LORAZEPAM 0.5MG TABLET PO PRN (15:00)
[2018-09-06] MEDS ORDERED: ENOXAPARIN 40MG/0.4ML SYR SUBCUT SCH (16:00)
[2018-09-06] MEDS: ATORVASTATIN CALCIUM 10MG TABLET PO SCH (21:13)
[2018-09-07] VITALS (57 sets, daily range): BP systolic 71–126; BP diastolic 47–79
[2018-09-07] MEDS: PIPERACILLIN/TAZ 2.25G PREMIX 50 ML IV SCH ×2 (02:26→11:06)
[2018-09-07] MEDS: SODIUM CHLORIDE 0.45% 1,000 ML IV SCH (02:26)
[2018-09-07] MEDS: HYDROCODONE/ACETAMINOPHEN 5/325MG TABLET PO PRN (04:12)
[2018-09-07] MEDS: VANCOMYCIN 1 G PREMIX 200 ML IV SCH (06:33)
[2018-09-07 07:02] LABS: CHLORIDE 107 mEq/L (98-107)
[2018-09-07 07:08] LABS: HEMATOCRIT. 23.3 % (42.0-52.0); HEMOGLOBIN. 7.6 g/dL (14.0-18.0); MEAN CORPUSCULAR HEMOGLOBIN 27.8 pg (28.0-32.0); MEAN CORPUSCULAR VOLUME 85.5 fL (80.0-94.0); MEAN PLATELET VOLUME 7.9 fl (7.4-10.4); PLATELET 285 x1000/uL (130-400); RED BLOOD CELL COUNT 2.72 mill/uL (4.7-6.1)
[2018-09-07] MEDS ORDERED: POTASSIUM CHLORIDE INJ 40 MEQ in DEXT 5% WATER 250 ML IV NR (08:00)
[2018-09-07] MEDS ORDERED: SODIUM CHLORIDE 0.9% 250 ML IV SCH (11:00)
[2018-09-07] MEDS: MIDODRINE HCL 2.5MG TABLET PO SCH ×3 (11:48→17:00)
[2018-09-07] MEDS ORDERED: SODIUM CHLORIDE 0.9% 250 ML IV ONE ×2 (12:00→13:00)
[2018-09-07] MEDS ORDERED: MAGNESIUM 2 G PREMIX 50 ML IV NR (12:00)
[2018-09-07 12:38] LABS: TOTAL IRON BINDING CAPACITY 110 ug/dL (250-450)
[2018-09-07 12:54] LABS: FERRITIN 701 ng/mL (22-322)
[2018-09-07 13:08] LABS: VITAMIN B12 SERUM 1032 pg/mL (211-911)
[2018-09-07] MEDS ORDERED: ACETAMINOPHEN 650MG SUPP PR PRN (13:30)
[2018-09-07] MEDS: PHENYLEPHRINE 20 MG in DEXT 5% WATER 498 ML IV PRN ×2 (13:32→17:48)
[2018-09-07] MEDS: MEROPENEM 1,000 MG in SODIUM CHLORIDE 0.9% 100 ML IV SCH ×2 (15:31→22:35)
[2018-09-07] MEDS: PHENYLEPHRINE 80 MG in DEXT 5% WATER 492 ML IV PRN (18:46)
[2018-09-07 19:24] LABS: PLATELET ESTIMATE NORMAL
[2018-09-07] MEDS ORDERED: FUROSEMIDE 20MG/2ML VIAL IVP NR (20:00)
[2018-09-07] MEDS: ATORVASTATIN CALCIUM 10MG TABLET PO SCH (20:25)
[2018-09-07] MEDS: HYDROCORTISONE SOD SUCCINATE 100 MG/2 ML VIAL IV SCH ×2 (20:25→22:00)
[2018-09-07 21:55] LABS: CREATINE KINASE MB FRACTION 70.9 ng/mL (0.5-3.6)
[2018-09-07] MEDS: NOREPINEPHRINE 8 MG in DEXT 5% WATER 242 ML IV PRN (22:35)
[2018-09-08] VITALS (94 sets, daily range): BP systolic 89–133; BP diastolic 51–91
[2018-09-08] MEDS: VANCOMYCIN 1 G PREMIX 200 ML IV SCH (04:00)
[2018-09-08] MEDS: MEROPENEM 1,000 MG in SODIUM CHLORIDE 0.9% 100 ML IV SCH ×3 (05:36→22:08)
[2018-09-08] MEDS: PHENYLEPHRINE 80 MG in DEXT 5% WATER 492 ML IV PRN (05:36)
[2018-09-08 05:43] LABS: HEMOGLOBIN. 10.1 g/dL (14.0-18.0); MEAN CORPUSCULAR HEMOGLOBIN 28.8 pg (28.0-32.0); MEAN CORPUSCULAR VOLUME 88.8 fL (80.0-94.0); MEAN PLATELET VOLUME 8.3 fl (7.4-10.4); PLATELET 313 x1000/uL (130-400); RED BLOOD CELL COUNT 3.49 mill/uL (4.7-6.1); RED CELL DISTRIBUTION WIDTH 16.1 % (11.6-14.6)
[2018-09-08 05:50] LABS: CHLORIDE 101 mEq/L (98-107)
[2018-09-08 05:54] LABS: D-DIMER 2.95 mg/L FEU (<0.50); INR 1.2; PARTIAL THROMBOPLASTIN TIME 31.5 sec (23.4-31.0); PROTHROMBIN TIME 12.6 sec (9.6-11.0)
[2018-09-08 06:02] LABS: PHOSPHORUS 2.3 mg/dL (2.5-4.9)
[2018-09-08] MEDS: HYDROCORTISONE SOD SUCCINATE 100 MG/2 ML VIAL IV SCH (06:21)
[2018-09-08] MEDS ORDERED: POTASSIUM CHLORIDE 20MEQ/PACKET PO NR (07:09)
[2018-09-08] MEDS ORDERED: SODIUM PHOS,M-BASIC-D-BASIC 15 MM in DEXT 5% WATER 245 ML IV NR (08:30)
[2018-09-08] MEDS: MIDODRINE HCL 2.5MG TABLET PO SCH ×3 (09:00→17:00)
[2018-09-08] MEDS ORDERED: POTASSIUM CHLORIDE INJ 40 MEQ in DEXT 5% WATER 250 ML IV NR (10:00)
[2018-09-08 10:32] LABS: BG BASE EXCESS -5.3 mmol/L (-2.0-2.0); BG CARBOXYHEMOGLOBIN 0.3 % (0.5-1.5); BG DEOXYHEMOGLOBIN 3.8 % (0.0-5.0); BG HCO3 ACT 16.9 mmol/L (22.0-26.0); BG METHEMOGLOBIN 0.2 % (0.0-1.5); BG OXYGEN SATURATION 96.2 % (92.0-98.5); BG OXYHEMOGLOBIN 95.7 % (94.0-97.0); BG PCO2 24.1 mmHg (35.0-45.0); BG PH 7.465 (7.350-7.450); BG SAMPLE SITE RIGHT RADIAL; BG TOTAL HEMOGLOBIN 11.4 g/dL (12.0-18.0); BG VENT MODE NASAL CANNULA
[2018-09-08 11:47] LABS: PLATELET ESTIMATE NORMAL
[2018-09-08] MEDS ORDERED: ROPIVACAINE HCL 10MG/ML 20 ML VIAL EPI ONE ×2 (15:00→15:17)
[2018-09-08] MEDS ORDERED: ETOMIDATE 2MG/ML 10ML VIAL IV ONE (15:20)
[2018-09-08] MEDS ORDERED: MIDAZOLAM HCL 5 MG/5 ML VIAL ONE (15:20)
[2018-09-08] MEDS ORDERED: PROPOFOL 200MG/20ML VIAL IV ONE (15:20)
[2018-09-08] MEDS ORDERED: SUCCINYLCHOLINE CHLORIDE 200MG/10ML IV ONE (15:21)
[2018-09-08] MEDS ORDERED: BUPIVACAINE HCL/EPINEPHRINE 0.5%/0.0005 30ML ONE (16:00)
[2018-09-08] MEDS ORDERED: FENTANYL CITRATE/PF 50MCG/ML 2ML VIAL ONE ×2 (16:03→16:17)
[2018-09-08] MEDS ORDERED: VANCOMYCIN HCL 500 MG/VIAL ONE (16:19)
[2018-09-08] MEDS: ATORVASTATIN CALCIUM 10MG TABLET PO SCH (21:55)
[2018-09-08] MEDS: NOREPINEPHRINE 8 MG in DEXT 5% WATER 242 ML IV PRN (21:56)
[2018-09-08] MEDS: SODIUM CHLORIDE 0.45% 1,000 ML IV SCH (22:08)
[2018-09-08] MEDS ORDERED: DEXTROSE 50% WATER 50ML SYRINGE IV PRN (23:15)
[2018-09-09] VITALS (98 sets, daily range): BP systolic 90–144; BP diastolic 44–112
[2018-09-09] MEDS: HYDROCODONE/ACETAMINOPHEN 5/325MG TABLET PO PRN ×2 (01:50→23:17)
[2018-09-09] MEDS: PHENYLEPHRINE 80 MG in DEXT 5% WATER 492 ML IV PRN (04:25)
[2018-09-09 05:43] LABS: BASOPHILS % 0.2 % (0.0-2.0); EOSINOPHILS % 0.7 % (0.0-5.0); HEMATOCRIT. 28.2 % (42.0-52.0); HEMOGLOBIN. 9.4 g/dL (14.0-18.0); LYMPHOCYTES % 9.4 % (20.0-50.0); MEAN CORPUSCULAR HEMOGLOBIN 29.2 pg (28.0-32.0); MEAN PLATELET VOLUME 8.2 fl (7.4-10.4); MONOCYTES % 10.2 % (2.0-8.0); NEUTROPHILS % 79.5 % (40.0-76.0); PLATELET 319 x1000/uL (130-400); RED BLOOD CELL COUNT 3.21 mill/uL (4.7-6.1); RED CELL DISTRIBUTION WIDTH 16.6 % (11.6-14.6)
[2018-09-09 06:06] LABS: CHLORIDE 109 mEq/L (98-107)
[2018-09-09 06:16] LABS: PHOSPHORUS 2.4 mg/dL (2.5-4.9)
[2018-09-09] MEDS: MEROPENEM 1,000 MG in SODIUM CHLORIDE 0.9% 100 ML IV SCH ×3 (06:34→21:54)
[2018-09-09] MEDS: BLOOD SUGAR DIAGNOSTIC STRIP TEST SCH ×4 (06:34→21:54)
[2018-09-09] MEDS: INSULIN LISPRO 100 UNITS/ML SUBCUT SCH ×4 (06:34→21:00)
[2018-09-09] MEDS ORDERED: POTASSIUM PHOS,M-BASIC-D-BASIC 15 MMOL in DEXT 5% WATER 245 ML IV ONE (08:00)
[2018-09-09] MEDS: MIDODRINE HCL 2.5MG TABLET PO SCH ×3 (09:11→17:00)
[2018-09-09] MEDS: MORPHINE SULFATE 2 MG/ML CPJ (NOT FOR IM USE) IV PRN (13:56)
[2018-09-09] MEDS: VANCOMYCIN 1500MG in DEXTROSE 5% WATER 250ML IV SCH (15:49)
[2018-09-09] MEDS: ATORVASTATIN CALCIUM 10MG TABLET PO SCH (21:54)
[2018-09-09] MEDS: SODIUM CHLORIDE 0.45% 1,000 ML IV SCH (23:17)
[2018-09-10] VITALS (92 sets, daily range): BP systolic 67–117; BP diastolic 29–82
[2018-09-10 05:41] LABS: CHLORIDE 108 mEq/L (98-107)
[2018-09-10 05:53] LABS: PHOSPHORUS 2.7 mg/dL (2.5-4.9)
[2018-09-10 06:07] LABS: BASOPHILS % 0.7 % (0.0-2.0); EOSINOPHILS % 2.2 % (0.0-5.0); HEMATOCRIT. 30.9 % (42.0-52.0); HEMOGLOBIN. 10.2 g/dL (14.0-18.0); LYMPHOCYTES % 12.3 % (20.0-50.0); MEAN CORPUSCULAR HEMOGLOBIN 29.4 pg (28.0-32.0); MEAN CORPUSCULAR VOLUME 89.1 fL (80.0-94.0); MEAN PLATELET VOLUME 8.6 fl (7.4-10.4); NEUTROPHILS % 75.8 % (40.0-76.0); PLATELET 296 x1000/uL (130-400); RED BLOOD CELL COUNT 3.47 mill/uL (4.7-6.1); RED CELL DISTRIBUTION WIDTH 17.3 % (11.6-14.6)
[2018-09-10] MEDS: MEROPENEM 1,000 MG in SODIUM CHLORIDE 0.9% 100 ML IV SCH ×3 (06:13→21:06)
[2018-09-10] MEDS: HYDROCODONE/ACETAMINOPHEN 5/325MG TABLET PO PRN ×2 (06:13→11:37)
[2018-09-10] MEDS: BLOOD SUGAR DIAGNOSTIC STRIP TEST SCH ×4 (06:13→21:09)
[2018-09-10] MEDS: INSULIN LISPRO 100 UNITS/ML SUBCUT SCH ×4 (06:14→21:00)
[2018-09-10] MEDS ORDERED: MAGNESIUM 2 G PREMIX 50 ML IV NR (09:00)
[2018-09-10] MEDS: MIDODRINE HCL 2.5MG TABLET PO SCH (09:28)
[2018-09-10] MEDS ORDERED: FUROSEMIDE 40MG/4ML VIAL IVP NR (11:00)
[2018-09-10] MEDS: ACETAMINOPHEN 325MG TABLET PO PRN (11:36)
[2018-09-10] MEDS: MIDODRINE HCL 5MG TABLET PO SCH ×2 (13:00→17:55)
[2018-09-10] MEDS: PHENYLEPHRINE 80 MG in DEXT 5% WATER 492 ML IV PRN (13:54)
[2018-09-10] MEDS: ATORVASTATIN CALCIUM 10MG TABLET PO SCH (21:06)
[2018-09-11] VITALS (89 sets, daily range): BP systolic 82–128; BP diastolic 56–101
[2018-09-11] MEDS: VANCOMYCIN 1500MG in DEXTROSE 5% WATER 250ML IV SCH (01:19)
[2018-09-11] MEDS: PHENYLEPHRINE 80 MG in DEXT 5% WATER 492 ML IV PRN ×2 (01:20→17:55)
[2018-09-11] MEDS: MEROPENEM 1,000 MG in SODIUM CHLORIDE 0.9% 100 ML IV SCH ×3 (05:45→21:19)
[2018-09-11 05:48] LABS: BASOPHILS % 0.4 % (0.0-2.0); EOSINOPHILS % 1.5 % (0.0-5.0); HEMATOCRIT. 29.1 % (42.0-52.0); HEMOGLOBIN. 9.7 g/dL (14.0-18.0); LYMPHOCYTES % 11.7 % (20.0-50.0); MEAN CORPUSCULAR HEMOGLOBIN 29.8 pg (28.0-32.0); MEAN PLATELET VOLUME 7.7 fl (7.4-10.4); MONOCYTES % 9.2 % (2.0-8.0); NEUTROPHILS % 77.2 % (40.0-76.0); PLATELET 408 x1000/uL (130-400); RED BLOOD CELL COUNT 3.27 mill/uL (4.7-6.1)
[2018-09-11] MEDS: BLOOD SUGAR DIAGNOSTIC STRIP TEST SCH ×4 (05:50→21:01)
[2018-09-11] MEDS: MORPHINE SULFATE 2 MG/ML CPJ (NOT FOR IM USE) IV PRN (05:54)
[2018-09-11 06:00] LABS: CHLORIDE 108 mEq/L (98-107)
[2018-09-11] MEDS: INSULIN LISPRO 100 UNITS/ML SUBCUT SCH ×4 (06:05→21:00)
[2018-09-11 06:09] LABS: PHOSPHORUS 2.7 mg/dL (2.5-4.9)
[2018-09-11] MEDS ORDERED: MIDODRINE HCL 5MG TABLET PO SCH (09:45)
[2018-09-11] MEDS: ASPIRIN 81MG EC TABLET PO SCH (10:14)
[2018-09-11] MEDS ORDERED: METOCLOPRAMIDE HCL 10MG/2ML VIAL IV NR (10:45)
[2018-09-11] MEDS: MIDODRINE HCL 5MG TABLET PO SCH ×2 (14:36→17:55)
[2018-09-11] MEDS: ATORVASTATIN CALCIUM 10MG TABLET PO SCH (20:56)
[2018-09-12] VITALS (96 sets, daily range): BP systolic 82–131; BP diastolic 52–86
[2018-09-12 05:04] LABS: CHLORIDE 107 mEq/L (98-107)
[2018-09-12 05:06] LABS: BASOPHILS % 0.4 % (0.0-2.0); EOSINOPHILS % 1.8 % (0.0-5.0); HEMATOCRIT. 28.8 % (42.0-52.0); HEMOGLOBIN. 9.4 g/dL (14.0-18.0); LYMPHOCYTES % 11.7 % (20.0-50.0); MEAN CORPUSCULAR HEMOGLOBIN 29.2 pg (28.0-32.0); MEAN CORPUSCULAR VOLUME 89.6 fL (80.0-94.0); MEAN PLATELET VOLUME 7.7 fl (7.4-10.4); MONOCYTES % 10.3 % (2.0-8.0); NEUTROPHILS % 75.8 % (40.0-76.0); PLATELET 392 x1000/uL (130-400); RED BLOOD CELL COUNT 3.21 mill/uL (4.7-6.1); RED CELL DISTRIBUTION WIDTH 17.6 % (11.6-14.6)
[2018-09-12] MEDS: MEROPENEM 1,000 MG in SODIUM CHLORIDE 0.9% 100 ML IV SCH ×3 (05:22→21:41)
[2018-09-12] MEDS: BLOOD SUGAR DIAGNOSTIC STRIP TEST SCH ×4 (05:34→21:41)
[2018-09-12] MEDS: INSULIN LISPRO 100 UNITS/ML SUBCUT SCH ×4 (06:33→21:00)
[2018-09-12] MEDS: MIDODRINE HCL 5MG TABLET PO SCH ×4 (08:25→21:41)
[2018-09-12] MEDS: ASPIRIN 81MG EC TABLET PO SCH (08:25)
[2018-09-12] MEDS: PHENYLEPHRINE 80 MG in DEXT 5% WATER 492 ML IV PRN (09:27)
[2018-09-12] MEDS: MORPHINE SULFATE 2 MG/ML CPJ (NOT FOR IM USE) IV PRN (15:09)
[2018-09-12] MEDS: VANCOMYCIN 1250MG in DEXTROSE 5% WATER 250ML IV SCH (16:17)
[2018-09-12] MEDS: ATORVASTATIN CALCIUM 10MG TABLET PO SCH (21:40)
[2018-09-13] VITALS (94 sets, daily range): BP systolic 83–128; BP diastolic 41–78
[2018-09-13 04:50] LABS: BASOPHILS % 0.3 % (0.0-2.0); HEMATOCRIT. 27.6 % (42.0-52.0); LYMPHOCYTES % 11.8 % (20.0-50.0); MEAN CORPUSCULAR HEMOGLOBIN 29.2 pg (28.0-32.0); MEAN CORPUSCULAR VOLUME 89.8 fL (80.0-94.0); MEAN PLATELET VOLUME 7.7 fl (7.4-10.4); MONOCYTES % 9.8 % (2.0-8.0); NEUTROPHILS % 76.1 % (40.0-76.0); PLATELET 399 x1000/uL (130-400); RED BLOOD CELL COUNT 3.07 mill/uL (4.7-6.1); RED CELL DISTRIBUTION WIDTH 17.5 % (11.6-14.6)
[2018-09-13 04:52] LABS: CHLORIDE 105 mEq/L (98-107)
[2018-09-13] MEDS: MEROPENEM 1,000 MG in SODIUM CHLORIDE 0.9% 100 ML IV SCH ×3 (05:52→21:07)
[2018-09-13] MEDS: BLOOD SUGAR DIAGNOSTIC STRIP TEST SCH ×4 (05:53→21:06)
[2018-09-13] MEDS: INSULIN LISPRO 100 UNITS/ML SUBCUT SCH ×4 (06:07→21:00)
[2018-09-13] MEDS: MIDODRINE HCL 5MG TABLET PO SCH ×4 (08:04→21:07)
[2018-09-13] MEDS: ASPIRIN 81MG EC TABLET PO SCH (08:04)
[2018-09-13] MEDS: PHENYLEPHRINE 80 MG in DEXT 5% WATER 492 ML IV PRN (08:14)
[2018-09-13] MEDS: HYDROCODONE/ACETAMINOPHEN 5/325MG TABLET PO PRN ×2 (11:06→18:02)
[2018-09-13] MEDS ORDERED: HYDROCORTISONE SOD SUCCINATE 100 MG/2 ML VIAL IV NR (17:15)
[2018-09-13] MEDS: ATORVASTATIN CALCIUM 10MG TABLET PO SCH (21:07)
[2018-09-14] VITALS (90 sets, daily range): BP systolic 86–128; BP diastolic 44–82
[2018-09-14] MEDS: VANCOMYCIN 1250MG in DEXTROSE 5% WATER 250ML IV SCH (01:28)
[2018-09-14 04:57] LABS: HEMATOCRIT. 27.9 % (42.0-52.0); HEMOGLOBIN. 9.2 g/dL (14.0-18.0); MEAN CORPUSCULAR HEMOGLOBIN 29.5 pg (28.0-32.0); MEAN CORPUSCULAR VOLUME 89.8 fL (80.0-94.0); MEAN PLATELET VOLUME 8.1 fl (7.4-10.4); PLATELET 424 x1000/uL (130-400); RED BLOOD CELL COUNT 3.11 mill/uL (4.7-6.1); RED CELL DISTRIBUTION WIDTH 18.1 % (11.6-14.6)
[2018-09-14 05:06] LABS: CHLORIDE 106 mEq/L (98-107)
[2018-09-14 05:14] LABS: PHOSPHORUS 2.3 mg/dL (2.5-4.9)
[2018-09-14] MEDS: MEROPENEM 1,000 MG in SODIUM CHLORIDE 0.9% 100 ML IV SCH ×3 (06:09→21:32)
[2018-09-14] MEDS: BLOOD SUGAR DIAGNOSTIC STRIP TEST SCH ×3 (06:09→21:29)
[2018-09-14] MEDS: INSULIN LISPRO 100 UNITS/ML SUBCUT SCH ×4 (06:20→21:00)
[2018-09-14 07:58] LABS: PLATELET ESTIMATE INCREASED
[2018-09-14] MEDS: ASPIRIN 81MG EC TABLET PO SCH (08:43)
[2018-09-14] MEDS: MIDODRINE HCL 5MG TABLET PO SCH ×4 (08:44→21:30)
[2018-09-14] MEDS ORDERED: SODIUM PHOS,M-BASIC-D-BASIC 20 MM in DEXT 5% WATER 243.3333 ML IV NR (09:00)
[2018-09-14] MEDS ORDERED: ALBUMIN HUMAN 25GM/100ML (25%) IV NR (09:45)
[2018-09-14] MEDS ORDERED: SODIUM CHLORIDE 0.9% 500 ML IV ONE (09:45)
[2018-09-14] MEDS: ALBUMIN HUMAN 12.5GM/50ML (25%) IV SCH ×2 (12:35→22:28)
[2018-09-14] MEDS: FAMOTIDINE 20MG TABLET PO SCH (13:43)
[2018-09-14] MEDS: ACETAMINOPHEN 325MG TABLET PO PRN (15:24)
[2018-09-14] MEDS: DIPHENHYDRAMINE 50MG/ML VIAL IV PRN (15:25)
[2018-09-14] MEDS: ATORVASTATIN CALCIUM 10MG TABLET PO SCH (21:30)
[2018-09-15] VITALS (40 sets, daily range): BP systolic 93–127; BP diastolic 55–86
[2018-09-15] MEDS: ALBUMIN HUMAN 12.5GM/50ML (25%) IV SCH (04:37)
[2018-09-15 05:36] LABS: BASOPHILS % 0.5 % (0.0-2.0); EOSINOPHILS % 2.3 % (0.0-5.0); HEMATOCRIT. 24.4 % (42.0-52.0); LYMPHOCYTES % 15.5 % (20.0-50.0); MEAN CORPUSCULAR HEMOGLOBIN 29.6 pg (28.0-32.0); MEAN CORPUSCULAR VOLUME 90.4 fL (80.0-94.0); MEAN PLATELET VOLUME 8.1 fl (7.4-10.4); MONOCYTES % 9.4 % (2.0-8.0); NEUTROPHILS % 72.3 % (40.0-76.0); PLATELET 378 x1000/uL (130-400); RED CELL DISTRIBUTION WIDTH 17.9 % (11.6-14.6)
[2018-09-15 06:03] LABS: CHLORIDE 109 mEq/L (98-107)
[2018-09-15] MEDS: BLOOD SUGAR DIAGNOSTIC STRIP TEST SCH ×5 (06:03→21:00)
[2018-09-15] MEDS: INSULIN LISPRO 100 UNITS/ML SUBCUT SCH ×4 (06:03→21:00)
[2018-09-15 06:13] LABS: PHOSPHORUS 3.7 mg/dL (2.5-4.9)
[2018-09-15] MEDS: MEROPENEM 1,000 MG in SODIUM CHLORIDE 0.9% 100 ML IV SCH ×3 (06:23→21:36)
[2018-09-15] MEDS ORDERED: POTASSIUM CHLORIDE 20MEQ/PACKET PO NR (07:30)
[2018-09-15] MEDS: FAMOTIDINE 20MG TABLET PO SCH (09:27)
[2018-09-15] MEDS: MIDODRINE HCL 5MG TABLET PO SCH ×4 (09:27→21:37)
[2018-09-15] MEDS: ASPIRIN 81MG EC TABLET PO SCH (09:27)
[2018-09-15] MEDS: VANCOMYCIN 1250MG in DEXTROSE 5% WATER 250ML IV SCH (13:49)
[2018-09-15 20:41] LABS: BASOPHILS % 0.4 % (0.0-2.0); EOSINOPHILS % 2.4 % (0.0-5.0); HEMATOCRIT. 29.1 % (42.0-52.0); HEMOGLOBIN. 9.4 g/dL (14.0-18.0); LYMPHOCYTES % 13.1 % (20.0-50.0); MEAN CORPUSCULAR VOLUME 89.9 fL (80.0-94.0); MONOCYTES % 9.3 % (2.0-8.0); NEUTROPHILS % 74.8 % (40.0-76.0); PLATELET 395 x1000/uL (130-400); RED BLOOD CELL COUNT 3.24 mill/uL (4.7-6.1); RED CELL DISTRIBUTION WIDTH 17.9 % (11.6-14.6)
[2018-09-15] MEDS: ATORVASTATIN CALCIUM 10MG TABLET PO SCH (21:36)
[2018-09-15] MEDS: DIPHENHYDRAMINE 50MG/ML VIAL IV PRN (21:42)
[2018-09-16] VITALS (12 sets, daily range): BP systolic 111–132; BP diastolic 68–90
[2018-09-16] MEDS: MEROPENEM 1,000 MG in SODIUM CHLORIDE 0.9% 100 ML IV SCH ×2 (05:04→14:32)
[2018-09-16] MEDS: BLOOD SUGAR DIAGNOSTIC STRIP TEST SCH ×3 (07:30→17:28)
[2018-09-16] MEDS: INSULIN LISPRO 100 UNITS/ML SUBCUT SCH ×3 (08:00→17:28)
[2018-09-16 08:30] LABS: BASOPHILS % 0.6 % (0.0-2.0); EOSINOPHILS % 2.8 % (0.0-5.0); HEMATOCRIT. 27.1 % (42.0-52.0); HEMOGLOBIN. 8.8 g/dL (14.0-18.0); LYMPHOCYTES % 14.2 % (20.0-50.0); MEAN CORPUSCULAR HEMOGLOBIN 29.3 pg (28.0-32.0); MEAN PLATELET VOLUME 8.3 fl (7.4-10.4); MONOCYTES % 9.6 % (2.0-8.0); NEUTROPHILS % 72.8 % (40.0-76.0); PLATELET 382 x1000/uL (130-400); RED BLOOD CELL COUNT 3.01 mill/uL (4.7-6.1); RED CELL DISTRIBUTION WIDTH 17.9 % (11.6-14.6)
[2018-09-16 09:01] LABS: CHLORIDE 110 mEq/L (98-107)
[2018-09-16 09:07] LABS: PHOSPHORUS 2.7 mg/dL (2.5-4.9)
[2018-09-16] MEDS: FAMOTIDINE 20MG TABLET PO SCH (09:35)
[2018-09-16] MEDS: ASPIRIN 81MG EC TABLET PO SCH (09:35)
[2018-09-16] MEDS: MIDODRINE HCL 5MG TABLET PO SCH ×3 (09:36→17:24)
== END 2018-09-16 19:25 | disposition short-term general hospital (02) | DRG 853 ==
LOC: 8WST 14:49 → 3WST 09-04 14:28 → MICUSO 09-07 12:48 → 5EST 09-15 16:43
PROVIDERS: ADMIT Family Medicine Adult Medicine; ATTEND Family Medicine Adult Medicine
PROC: 04CK3ZZ Extirpation of Matter from Right Femoral Artery, Percutaneous Approach (ICD-10-PCS; 2018-09-04)
PROC: [UNRECOGNIZED PROCEDURE] (2018-09-04)
PROC: B41G1ZZ Fluoroscopy of Left Lower Extremity Arteries using Low Osmolar Contrast (ICD-10-PCS; 2018-09-04)
PROC: 02HV33Z Insertion of Infusion Device into Superior Vena Cava, Percutaneous Approach (ICD-10-PCS; 2018-09-06)
PROC: B5181ZA Fluoroscopy of Superior Vena Cava using Low Osmolar Contrast, Guidance (ICD-10-PCS; 2018-09-06)
PROC: B548ZZA Ultrasonography of Superior Vena Cava, Guidance (ICD-10-PCS; 2018-09-06)
PROC: 30233N1 Transfusion of Nonautologous Red Blood Cells into Peripheral Vein, Percutaneous Approach (ICD-10-PCS; 2018-09-07)
PROC: 0Y6R0Z0 Detachment at Right 2nd Toe, Complete, Open Approach (ICD-10-PCS; principal; 2018-09-08)
PROC: 0Y6C0Z2 Detachment at Right Upper Leg, Mid, Open Approach (ICD-10-PCS; 2018-09-08)
DX: A41.9 Sepsis, unspecified organism (principal); L89.153 Pressure ulcer of sacral region, stage 3; R65.21 Severe sepsis with septic shock; I21.4 Non-ST elevation (NSTEMI) myocardial infarction; I50.41 Acute combined systolic (congestive) and diastolic (congestive) heart failure; I63.9 Cerebral infarction, unspecified; N17.9 Acute kidney failure, unspecified; J84.9 Interstitial pulmonary disease, unspecified; I96 Gangrene, not elsewhere classified; E46 Unspecified protein-calorie malnutrition; M86.671 Other chronic osteomyelitis, right ankle and foot; E11.52 Type 2 diabetes mellitus with diabetic peripheral angiopathy with gangrene; E87.4 Mixed disorder of acid-base balance; I42.9 Cardiomyopathy, unspecified; I13.0 Hypertensive heart and chronic kidney disease with heart failure and stage 1 through stage 4 chronic kidney disease, or unspecified chronic kidney disease; N39.0 Urinary tract infection, site not specified; T82.868A Thrombosis due to vascular prosthetic devices, implants and grafts, initial encounter; I69.351 Hemiplegia and hemiparesis following cerebral infarction affecting right dominant side; N18.9 Chronic kidney disease, unspecified; I25.10 Atherosclerotic heart disease of native coronary artery without angina pectoris; D64.9 Anemia, unspecified; E78.5 Hyperlipidemia, unspecified; E11.22 Type 2 diabetes mellitus with diabetic chronic kidney disease; E11.42 Type 2 diabetes mellitus with diabetic polyneuropathy; E83.42 Hypomagnesemia; E87.6 Hypokalemia; I25.5 Ischemic cardiomyopathy; R53.1 Weakness; E11.65 Type 2 diabetes mellitus with hyperglycemia; E11.69 Type 2 diabetes mellitus with other specified complication; G54.6 Phantom limb syndrome with pain; L89.309 Pressure ulcer of unspecified buttock, unspecified stage; Y83.2 Surgical operation with anastomosis, bypass or graft as the cause of abnormal reaction of the patient, or of later complication, without mention of misadventure at the time of the procedure; Y92.89 Other specified places as the place of occurrence of the external cause; Z95.5 Presence of coronary angioplasty implant and graft; Z68.26 Body mass index [BMI] 26.0-26.9, adult; Z79.4 Long term (current) use of insulin; I25.2 Old myocardial infarction; Z74.01 Bed confinement status; Z79.82 Long term (current) use of aspirin; Z79.899 Other long term (current) drug therapy; Z86.14 Personal history of Methicillin resistant Staphylococcus aureus infection; Z22.322 Carrier or suspected carrier of Methicillin resistant Staphylococcus aureus; Z87.891 Personal history of nicotine dependence; Z89.611 Acquired absence of right leg above knee; Z95.828 Presence of other vascular implants and grafts
CPT/HCPCS: 36415; 36569; 36573; 36600; 37225; 71045; 73552; 75710; 76770; 80048; 80061; 80202; 82043; 82375; 82550; 82553; 82570; 82607; 82728; 82805; 82962; 83540; 83550; 83605; 83735; 83880; 84100; 84134; 84145; 84300; 84443; 84484; 85347; 85379; 85651; 86140; 86850; 86900; 86920; 88305; 88307; 88311; 93005; 93306; 93970; 97166; 97530; 97535; A6261; C1725; C1760; C1769; C1885; C1887; C1893; C1894; J0171; J0330; J1200; J1644; J1650; J1720; J1940; J2185; J2250; J2270; J2370; J2543; J2704; J2795; J3010; J3370; J3475; J3480; J3490; J7040; J7050; J7060; P9016; P9047; Q9967; A4315